=== PATIENT | male | born 1955 | race Caucasian/White ===

== ENCOUNTER 2017-10-01 13:15 | Observation (INO) | payer OTHER ==
[~2017-10-01] VITALS: Ht 177.8 cm; Wt 94.1 kg
--- OUTSIDE RECORDS SUMMARY | 2017-10-01 13:17 | XMS REPORT | Clinical Summary ---
Author Author [facility] Address Unknown Phone Unavailable Care Team Providers Care Public Health Name Role Phone Asked, Pcp PCP Unavailable Allergies No Known Allergies Current Medications No known medications Active Problems Not on file Social History Tobacco Use Types Packs/Day Years Used Date Former Smoker Smokeless Tobacco: Former Quit: User 09/21/2013 Alcohol Use Drinks/Week oz/Week Comments No Sex Assigned at Date Recorded Not on file Last Filed Vital Signs Not on file Plan of Treatment Health Maintenance Due Date Last Done Comments COLONOSCOPY 2003 ZOSTER VACCINE 2013 INFLUENZA VACCINE 01/09/2018 Results Not on fileafter 09/30/2016 Insurance Payer Benefit Subscriber ID Type Phone Address Plan / Group CIG[employer] CIGNA OPEN xxxxxxxxxxx [place] [address]
[2017-10-01 15:00] LABS: BASOPHILS % 0.3 % (0.0-1.0); EOSINOPHILS # (AUTO) 0.3 (0.0-0.4); EOSINOPHILS % 2.2 % (0.0-6.0); HEMATOCRIT 39.6 % (38.2-49.6); LYMPHOCYTES # (AUTO) 2.3 (1.0-3.2); LYMPHOCYTES % 20.2 % (18.0-39.1); MEAN CORPUSCULAR HEMOGLOBIN 31.1 pg (28-32); MEAN CORPUSCULAR HGB CONC 32.8 g/dL (31-35); MEAN CORPUSCULAR VOLUME 94.7 fL (81-99); MONOCYTES # (AUTO) 0.9 (0.2-0.8); MONOCYTES % 7.8 % (4.4-11.3); NEUTROPHILS # (AUTO) 7.9 (2.1-6.9); NEUTROPHILS % 69.1 % (38.7-80.0); PLATELET COUNT 358 x10e3/uL (140-360); RED BLOOD COUNT 4.18 x10e6/uL (4.3-5.7); RED CELL DISTRIBUTION WIDTH 13.1 % (11.7-14.4)
[2017-10-01 15:09] LABS: BILIRUBIN,URINE NEGATIVE (NEGATIVE); CLARITY,URINE SL CLOUDY (CLEAR); COLOR,URINE YELLOW (YELLOW); KETONES,URINE NEGATIVE (NEGATIVE); LEUKOCYTE ESTERASE ,URINE NEGATIVE (NEGATIVE); NITRITE,URINE NEGATIVE (NEGATIVE); PROTEIN,URINE DIPSTICK NEGATIVE (NEGATIVE); URINE UROBILINOGEN 0.2 mg/dL (0.2 - 1)
[2017-10-01] MEDS ORDERED: KETOROLAC TROMETHAMINE 30 MG/ML VIAL IV STA (15:09)
[2017-10-01 15:15] LABS: AMYLASE 50 U/L (25-125); LIPASE 16 U/L (8-78)
[2017-10-01 15:17] LABS: EPITHELIAL CELLS,URINE RARE /LPF; WBC,URINE (MAN) 0-5 /HPF (0-5)
[2017-10-01 15:19] LABS: ALANINE AMINOTRANSFERASE 28 IU/L (0-55); ALBUMIN 3.7 g/dL (3.5-5.0); ALBUMIN/GLOBULIN RATIO 0.8 (0.8-2.0); ALKALINE PHOSPHATASE 147 IU/L (40-150); ANION GAP 14.1 mmol/L (8-16); BLOOD UREA NITROGEN 10 mg/dL (7-26); BUN/CREATININE RATIO 10 (6-25); CALCIUM 10.6 mg/dL (8.4-10.2); CARBON DIOXIDE 27 mmol/L (22-29); CHLORIDE 100 mmol/L (98-107); CREATININE, SERUM 0.97 mg/dL (0.72-1.25); EST GLOMERULAR FILTRATION RATE > 60 ML/MIN (60-); GLUCOSE 88 mg/dL (74-118); POTASSIUM 4.1 mmol/L (3.5-5.1); SODIUM 137 mmol/L (136-145)
[2017-10-01] MEDS ORDERED: SPIRIVA18 MCG INH (16:29)
[2017-10-01] MEDS ORDERED: AMBIEN10 MG PO (16:29)
[2017-10-01] MEDS ORDERED: NORCO 10-325 T1 EACH (16:29)
[2017-10-01] MEDS ORDERED: ALBUTEROL0.63 MG/3 (16:29)
[2017-10-01] MEDS ORDERED: METOPROLOL TART25 MG PO (16:29)
--- NOTE | 2017-10-01 16:45 | Diagnostic Imaging Report ---
EXAM: CT Abdomen and Pelvis WITH contrast INDICATION: \S\ABDOMINAL PAIN \S\[id number] \S\1553 \S\Y COMPARISON: None. TECHNIQUE: Abdomen and pelvis were scanned utilizing a multidetector helical scanner from the lung base to the pubic symphysis after administration of IV contrast. Coronal and sagittal reformations were obtained. Routine protocol was performed. Scan was performed when during portal venous phase. IV CONTRAST: 100 mL of Isovue-370 ORAL CONTRAST: Water COMPLICATIONS: None RADIATION DOSE: Total DLP: 643.04 mGy*cm Estimated effective dose: (DLP x 0.015 x size factor) mSv CTDIvol has been reviewed. It is below the limits set by the Radiation Protocol Committee (RPC). FINDINGS: LINES and TUBES: None. LOWER THORAX: Unremarkable HEPATOBILIARY: No focal hepatic lesions. No biliary ductal dilation. GALLBLADDER: Not visualized. SPLEEN: No splenomegaly. PANCREAS: No focal masses or ductal dilatation. Pancreatic head calcification (series 2, image 31), probably related to prior pancreatitis. ADRENALS: No adrenal nodules KIDNEYS/URETERS: Kidneys enhance symmetrically. No hydronephrosis. No renal mass. 2.5 cm exophytic right inferior pole renal cyst. Additional subcentimeter hypodensities are too small to characterize. No stones. GI TRACT: No abnormal distention, wall thickening, or evidence of bowel obstruction. Appendix is normal. PELVIC ORGANS/BLADDER: Unremarkable. LYMPH NODES: No lymphadenopathy. VESSELS: There is moderate to severe atherosclerotic disease in the aorta and major arterial branches. Focal ectasia of infrarenal abdominal aorta measuring 2.2 cm (series 2, image 37). Marked narrowing at the origin of the celiac axis. PERITONEUM / RETROPERITONEUM: No free air or fluid. BONES: Multilevel advanced degenerative changes of lumbar spine. Grade 1 retrolisthesis of L5 in relation to S1. SOFT TISSUES: Unremarkable. Small fat-containing umbilical hernia. IMPRESSION: 1. No acute inflammatory process in the abdomen/pelvis. 2. Moderate to severe aortoiliac atherosclerotic disease with marked narrowing of the origin of the celiac axis. Signed by: Dr. Kana Maldonado MD on 10/01/2017 4:41 PM
[2017-10-01] MEDS ORDERED: IOPAMIDOL 370 MG/ML 200 ML INFUS..BTL INJ ONE (17:35)
[2017-10-01] MEDS ORDERED: SODIUM CHLORIDE 0.9% 50ML 50 ML ONE (17:35)
[2017-10-01] MEDS ORDERED: D5.45%NS/KCL 20MEQ 1,000 ML IV SCH (18:13)
[2017-10-01] MEDS ORDERED: PROMETHAZINE HCL (IM) 25 MG/ML VIAL IV PRN (18:15)
[2017-10-01] MEDS ORDERED: HYDROMORPHONE 1MG/1ML INJ IV ONE (18:30)
[2017-10-01] MEDS ORDERED: PROMETHAZINE 12.5MG/ NACL 0.9% 50 ML IV PRN (18:30)
[2017-10-01] MEDS ORDERED: ONDANSETRON HCL 4 MG ORAL DISINTEGRATING TAB PO ONE (18:30)
--- OUTSIDE RECORDS SUMMARY | 2017-10-01 18:34 | XMS REPORT ---
Author Author [facility] Address Unknown Phone Unavailable Care Team Providers Care Cyberathlete Name Role Phone YEHUDA KEITA Unavailable Unavailable Problems This patient has no known problems. Allergies, Adverse Reactions, Alerts This patient has no known allergies or adverse reactions. Medications This patient has no known medications. Results Test Description Test Time Test Comments Text Results Atomic Results Result Comments CT ABDOMEN/PELVIS W [place] [address] Patient Name: MARY LARES MR #: [id number] : 1955 Age/Sex: 62/M Req # : [id number] Adm Physician: Ordered by: YANCY OLGUIN CREDIT VERIFICATION CLERK Report #: [id number] Location: ER Room/Bed: Procedure: [id number] CT/CT ABDOMEN/PELVIS W Exam Date: 10/01/17 Exam Time: 1553 REPORT STATUS: Signed EXAM: CT Abdomen and Pelvis WITH contrast INDICATION: COMPARISON: None. TECHNIQUE: Abdomen and pelvis were scanned utilizing a multidetector helical scanner from the lung base to the pubic symphysis after administration of IV contrast. Coronal and sagittal reformations were obtained. Routine protocol was performed. Scan was performed when during portal venous phase. IV CONTRAST: 100 mL of Isovue-370 ORAL CONTRAST: Water COMPLICATIONS: None RADIATION DOSE: Total DLP: 643.04 mGy*cm Estimated effective dose: (DLP x 0.015 x size factor) mSv CTDIvol has been reviewed. It is below the limits set by the Radiation Protocol Committee (RPC). FINDINGS: LINES and TUBES: None. LOWER THORAX: Unremarkable HEPATOBILIARY: No focal hepatic lesions. No biliary ductal dilation. GALLBLADDER: Not visualized. SPLEEN: No splenomegaly. PANCREAS: No focal masses or ductal dilatation. Pancreatic head calcification (series 2, image 31), probably related to prior pancreatitis. ADRENALS: No adrenal nodules KIDNEYS/URETERS: Kidneys enhance symmetrically. No hydronephrosis. No renal mass. 2.5 cm exophytic right inferior pole renal cyst. Additional subcentimeter hypodensities are too small to characterize. No stones. GI TRACT: No abnormal distention, wall thickening, or evidence of bowel obstruction. Appendix is normal. PELVIC ORGANS/BLADDER: Unremarkable. LYMPH NODES: No lymphadenopathy. VESSELS: There is moderate to severe atherosclerotic disease in the aorta and major arterial branches. Focal ectasia of infrarenal abdominal aorta measuring 2.2 cm (series 2, image 37). Marked narrowing at the origin of the celiac axis. PERITONEUM / RETROPERITONEUM: No free air or fluid. BONES: Multilevel advanced degenerative changes of lumbar spine. Grade 1 retrolisthesis of L5 in relation to S1. SOFT TISSUES: Unremarkable. Small fat-containing umbilical hernia. IMPRESSION: 1. No acute inflammatory process in the abdomen/pelvis. 2. Moderate to severe aortoiliac atherosclerotic disease with marked narrowing of the origin of the celiac axis. Signed by: Dr. Kana Miranda MD on 10/01/2017 4: 41 PM Dictated By: KANA MIRANDA MD 40 Transcribed By: JAZMIN on 10/01/171640 COPY TO: YANCY OLGUIN NP
--- OUTSIDE RECORDS SUMMARY | 2017-10-01 18:34 | XMS REPORT | Clinical Summary ---
Author Author [facility] Organization [facility] Address Unknown Phone Unavailable Care Team Providers Care Project Financial Analyst Name Role Phone Asked, Pcp PCP Unavailable [...] CIGNA CIGNA OPEN xxxxxxxxxxx [place] ACCESS/[place] [address]
[2017-10-01 21:15] VITALS: BP 156/83
[2017-10-01] MEDS: METOPROLOL TARTRATE 25 MG TAB PO SCH (23:04)
[2017-10-02] VITALS (7 sets, daily range): BP systolic 98–143; BP diastolic 64–91
[2017-10-02] MEDS: HYDROMORPHONE 1MG/1ML INJ IV PRN ×6 (00:23→23:21)
[2017-10-02] MEDS: ZOLPIDEM TARTRATE 10 MG TAB PO PRN (00:47)
[2017-10-02] MEDS: ALBUTEROL SULF 0.083% NEB SOLN 3 ML NEB NEB SCH ×3 (01:00→20:40)
[2017-10-02] MEDS ORDERED: SODIUM CHLORIDE 0.9% 1000ML 1,000 ML IV SCH (06:30)
[2017-10-02 06:55] LABS: BASOPHILS % 0.3 % (0.0-1.0); EOSINOPHILS # (AUTO) 0.3 (0.0-0.4); EOSINOPHILS % 2.9 % (0.0-6.0); HEMATOCRIT 35.3 % (38.2-49.6); HEMOGLOBIN 11.5 g/dL (14.0-18.0); LYMPHOCYTES # (AUTO) 2.7 (1.0-3.2); LYMPHOCYTES % 23.2 % (18.0-39.1); MEAN CORPUSCULAR HEMOGLOBIN 30.4 pg (28-32); MEAN CORPUSCULAR HGB CONC 32.6 g/dL (31-35); MEAN CORPUSCULAR VOLUME 93.4 fL (81-99); MONOCYTES # (AUTO) 0.9 (0.2-0.8); MONOCYTES % 8.1 % (4.4-11.3); NEUTROPHILS # (AUTO) 7.6 (2.1-6.9); NEUTROPHILS % 65.2 % (38.7-80.0); PLATELET COUNT 296 x10e3/uL (140-360); RED BLOOD COUNT 3.78 x10e6/uL (4.3-5.7)
[2017-10-02 07:18] LABS: ANION GAP 12.8 mmol/L (8-16); BLOOD UREA NITROGEN 10 mg/dL (7-26); BUN/CREATININE RATIO 13 (6-25); CALCIUM 9.9 mg/dL (8.4-10.2); CARBON DIOXIDE 27 mmol/L (22-29); CHLORIDE 104 mmol/L (98-107); CREATININE, SERUM 0.78 mg/dL (0.72-1.25); EST GLOMERULAR FILTRATION RATE > 60 ML/MIN (60-); GLUCOSE 94 mg/dL (74-118); POTASSIUM 4.8 mmol/L (3.5-5.1); SODIUM 139 mmol/L (136-145)
[2017-10-02 07:46] LABS: CHOL/HDL RATIO 3.5 (3.9-4.7)
--- NOTE | 2017-10-02 07:51 | History and Physical ---
PRIMARY CARE PHYSICIAN: Dr. Derrick Espino CHIEF COMPLAINT: Severe mid-abdominal pain. HISTORY OF PRESENT ILLNESS: This is a 62-year-old man with a history of chronic abdominal pain that has been ongoing for many months. He has seen his primary care doctor. He had upper and lower endoscopy at [facility] and has been maintained on hydrocodone by his primary care doctor. He now presented to the hospital due to persistence of his symptoms and slight increase in pain. The patient says he has been at [facility] at which time they did an EGD. They had originally planned to perform a cholecystectomy, but he states at that time they were unable to locate his gallbladder. He states he has had biliary stones and has had biliary tract manipulation. PAST MEDICAL HISTORY 1. Hypertension. 2. Biliary stones, status post biliary tract manipulation. 3. Pancreatitis. 4. Cigarette use. 5. Hiatal hernia. PAST SURGICAL HISTORY: Biliary tract manipulation. ALLERGIES: PER ELECTRONIC MEDICAL RECORD. FAMILY HISTORY AND SOCIAL HISTORY: The patient is . He has 1 daughter. He quit alcohol and quit cigarettes in September 2013. MEDICATIONS: Per electronic medical record. REVIEW OF SYSTEMS: Denies any dizziness or chest pain. PHYSICAL EXAMINATION VITAL SIGNS: Reviewed. GENERAL APPEARANCE: A tired-appearing man resting in bed. HEENT: Anicteric. Pupils are responsive to light. No oral lesions. CARDIOVASCULAR: Normal S1 and S2. LUNGS: Moderate breath sounds. ABDOMEN: Soft, nondistended. He has mid-abdominal discomfort. No rebound or guarding. EXTREMITIES: No edema or calf tenderness. NEUROLOGIC: Alert, oriented times 3, moving all extremities. SKIN: Dry. PSYCHIATRIC: Normal affect. LABS: Reviewed. MEDICATIONS: Reviewed. ASSESSMENT: This is a 62-year-old man. 1. Early sepsis. 2. Mid-abdominal pain, which is chronic. 3. Hypercalcemia/dehydration. 4. Hypertension. 5. Obesity. Body mass index 31.6. PLAN 1. Continue rehydration. 2. Continue blood pressure control. 3. Add IV Flagyl. 4. Pain control with Dilaudid. 5. Obtain and monitor electrolytes. 6. GI consultation and follow up recommendations. 7. Use SCDs and Pepcid. Job#: [id number]
[2017-10-02] MEDS: FAMOTIDINE 20 MG/2 ML VIAL IV SCH ×2 (09:22→16:49)
[2017-10-02] MEDS: METOPROLOL TARTRATE 25 MG TAB PO SCH ×2 (09:22→16:49)
[2017-10-02] MEDS: METRONIDAZOLE 500MG/NS 100ML 100 ML IV SCH ×2 (13:11→21:58)
[2017-10-02] MEDS ORDERED: SYMBICORT 16010.2 GM (14:01)
[2017-10-02] MEDS ORDERED: PEG (High)/E-LYTE SOLN 4,000 ML BTL PO NR (20:00)
[2017-10-02] MEDS ORDERED: BISACODYL 5 MG TAB EC PO NR (20:00)
--- NOTE | 2017-10-02 21:51 | Consultation ---
DATE OF CONSULTATION: October 02, 2017 HISTORY: This is a 62-year-old, who has history of abdominal pain, apparently presented to the hospital because of pain again mainly is in the periumbilical area radiating towards the right side of the abdomen. His workup revealed that his CMP was normal. His white count a little bit high 11.4, and his CAT scan shows renal cyst with focal ectasia and in infra-abdominal aorta about 2.2 cm. There is marked narrowing at the origin of the celiac axis. He said that he had an upper and lower endoscopy that was done about 2016 at [facility], which supposedly "normal". OTHER MEDICAL PROBLEM: Significant for the abdominal pain that has been going on for several months already. Also, history of biliary stones supposedly with pancreatitis. History of hiatal hernia. ALLERGIES: NONE. SOCIAL HISTORY: Denies any alcohol use. FAMILY HISTORY: Noncontributory. REVIEW OF SYSTEMS: Denies any chest pain or shortness of breath. Denies any dysphagia or odynophagia. Denies any dysuria, hematuria or any kind of syncopal episode. PHYSICAL EXAMINATION GENERAL: Patient is awake, alert, appears to be stable, not in acute distress at this point. VITAL SIGNS: Afebrile currently. HEENT: Normocephalic, atraumatic. Sclerae anicteric. NECK: Supple. HEART: Sounds regular. ABDOMEN: Soft. There is no distention at this point. There is some tenderness mainly in the right lower quadrant area. There is no rebound or mass. EXTREMITIES: No clubbing. LAB VALUES: Today, WBC of 11.6, hemoglobin 11.5, sed rate was 97, and CAT scan as I mentioned before. IMPRESSIONS 1. Abdominal pain mainly is in the periumbilical area. Pain seems to be worse with meal. Computerized axial tomography scan shows narrowing of the celiac area. 2. Leukocytosis. RECOMMENDATIONS: Continue on the current care at this point. Will proceed with EGD and colonoscopy for tomorrow and follow labs and clinically. Job#: [id number] CQ cc:MRAEN MOHAMUD MD
[2017-10-03] VITALS: BP 122/73
[2017-10-03] MEDS: ZOLPIDEM TARTRATE 10 MG TAB PO PRN (00:37)
[2017-10-03] MEDS: ALBUTEROL SULF 0.083% NEB SOLN 3 ML NEB NEB SCH ×2 (02:25→06:45)
[2017-10-03] MEDS: HYDROMORPHONE 1MG/1ML INJ IV PRN ×3 (03:42→14:00)
[2017-10-03 04:00] VITALS: BP 141/59
[2017-10-03] MEDS: METRONIDAZOLE 500MG/NS 100ML 100 ML IV SCH (05:36)
[2017-10-03] MEDS ORDERED: PEPCID20 MG PO (06:56)
[2017-10-03] MEDS ORDERED: FLAGYL500 MG PO (07:03)
--- NOTE | 2017-10-03 07:11 | Progress Note ---
DATE: October 03, 2017 TIME: 6:53 a.m. OVERNIGHT: No events. REVIEW OF SYSTEMS: Denies any dizziness. PHYSICAL EXAMINATION VITAL SIGNS: Reviewed. GENERAL: A tired-appearing man resting in bed. HEENT: Anicteric. Pupils respond to light. No oral lesions. CARDIOVASCULAR: Normal S1 and S2. LUNGS: Moderate breath sounds. ABDOMEN: Soft and nondistended. Has midabdomen discomfort. No rebound or guarding. EXTREMITIES: No edema or calf tenderness. NEUROLOGICAL: Alert and oriented times 3. Moving all extremities. SKIN: Dry. PSYCHIATRIC: Normal affect. LABS: Reviewed. MEDICATIONS: Reviewed. ASSESSMENT: A 62-year-old man with: 1. Midabdominal pain which is chronic. 2. Hypercalcemia/dehydration. 3. Hypertension. 4. Obesity: Body mass index 31.6. PLAN 1. Endoscopy pending. 2. Continue rehydration. 3. Continue IV Flagyl. 4. Continue pain control. 5. Discharge planning. If endoscopy is negative, possible discharge home later today, although the patient did have an elevated sed rate of 97. Job#: [id number] MEENA
[2017-10-03 07:27] VITALS: BP 129/72
[2017-10-03] MEDS: METOPROLOL TARTRATE 25 MG TAB PO SCH (07:41)
[2017-10-03] MEDS: FAMOTIDINE 20 MG/2 ML VIAL IV SCH (07:41)
[2017-10-03 09:06] VITALS: BP 129/72
[2017-10-03] MEDS ORDERED: MIDAZOLAM HCL 2 MG/2 ML VIAL ONE (10:12)
[2017-10-03] MEDS ORDERED: FENTANYL CITRATE/PF 100MCG/2 ML INJ ONE (10:12)
[2017-10-03 11:12] VITALS: BP 120/67
[2017-10-03] MEDS ORDERED: PROPOFOL IV EMULSION 10 MG/ML 20 ML VIAL ONE (16:47)
[2017-10-03] MEDS ORDERED: LIDOCAINE HCL 2% LOCAL INJ 5 ML SDV VIAL INJ ONE (16:47)
--- NOTE | 2017-10-24 11:52 | Discharge Summary ---
PRINCIPAL DIAGNOSES 1. Mid-abdominal pain, which is chronic. 2. Hypercalcemia. 3. Dehydration. 4. Hypertension. 5. Obesity. Body mass index 31.6. 6. Status post colonoscopy. Findings are colonic polyps and diverticulosis. SECONDARY DIAGNOSIS: Hypertension. CHIEF COMPLAINT: Abdominal pain. HISTORY OF PRESENT ILLNESS: This is a 62-year-old man with abdominal pain. Please refer to the H and P for further details. HOSPITAL COURSE: The patient has chronic abdominal pain. He underwent colonoscopy, which showed colonic polyps and diverticulosis. He had hypercalcemia and dehydration. We rehydrated. He has obesity with BMI 31.6. The patient was treated with IV Flagyl and pain control and discharged home. DISCHARGE MEDICATIONS: Per electronic medical record. FOLLOWUP 1. With primary care doctor in 1 week. 2. With GI service in 2 weeks. CONDITION ON DISCHARGE: Stable and improving. DISCHARGE LOCATION: Home. Job#: [id number]
== END 2017-10-03 13:59 | disposition home or self-care (01) ==
LOC: ER 13:15 → ERHOLD 18:31 → IMCU 21:03
PROVIDERS: ADMIT Internal Medicine; ATTEND Internal Medicine
DX: A41.9 Sepsis, unspecified organism (principal); E83.52 Hypercalcemia; E86.0 Dehydration; I10 Essential (primary) hypertension; E66.9 Obesity, unspecified; Z68.31 Body mass index [BMI] 31.0-31.9, adult; K55.1 Chronic vascular disorders of intestine; K63.5 Polyp of colon; K57.30 Diverticulosis of large intestine without perforation or abscess without bleeding; K64.8 Other hemorrhoids; K29.70 Gastritis, unspecified, without bleeding; K44.9 Diaphragmatic hernia without obstruction or gangrene; K29.80 Duodenitis without bleeding
CPT/HCPCS: 36415 ×2; 43239; 45385; 74177; 80048; 80053; 80061; 81001; 82150; 83690; 85025 ×2; 85651; 88305; 88312; 93005; 94640 ×4; 99284; G0378 ×3; J1170 ×3; J1885; J2001; J2250; J7030 ×2; Q9967

== ENCOUNTER 2018-03-19 12:25 | Emergency (ER) | payer MEDICARE, OTHER ==
[~2018-03-19] VITALS: Ht 180.3 cm; Wt 90.7 kg
[~2018-03-19 12:25] MED LIST: ALBUTEROL0.63 MG/3; AMBIEN10 MG PO; FLAGYL500 MG PO; METOPROLOL TART25 MG PO; NORCO 10-325 T1 EACH PO; PEPCID20 MG PO; SPIRIVA18 MCG INH; SYMBICORT 16010.2 GM
[2018-03-19] MEDS ORDERED: ACETAMINOPHEN 1000 MG/100 ML IV STA (12:35)
[2018-03-19 13:26] LABS: BASOPHILS # (AUTO) 0.1 (0.0-0.1); BASOPHILS % 0.5 % (0.0-1.0); EOSINOPHILS # (AUTO) 0.2 (0.0-0.4); EOSINOPHILS % 1.6 % (0.0-6.0); HEMATOCRIT 38.9 % (38.2-49.6); HEMOGLOBIN 12.1 g/dL (14.0-18.0); LYMPHOCYTES # (AUTO) 1.6 (1.0-3.2); LYMPHOCYTES % 13.5 % (18.0-39.1); MEAN CORPUSCULAR HEMOGLOBIN 29.4 pg (28-32); MEAN CORPUSCULAR HGB CONC 31.1 g/dL (31-35); MEAN CORPUSCULAR VOLUME 94.6 fL (81-99); MONOCYTES # (AUTO) 0.6 (0.2-0.8); MONOCYTES % 5.3 % (4.4-11.3); NEUTROPHILS # (AUTO) 9.2 (2.1-6.9); NEUTROPHILS % 78.6 % (38.7-80.0); PLATELET COUNT 442 x10e3/uL (140-360); RED BLOOD COUNT 4.11 x10e6/uL (4.3-5.7); RED CELL DISTRIBUTION WIDTH 15.4 % (11.7-14.4)
[2018-03-19 14:26] LABS: ALANINE AMINOTRANSFERASE 36 IU/L (0-55); ALBUMIN 3.3 g/dL (3.5-5.0); ALBUMIN/GLOBULIN RATIO 0.7 (0.8-2.0); ALKALINE PHOSPHATASE 170 IU/L (40-150); ANION GAP 17.6 mmol/L (8-16); BLOOD UREA NITROGEN 14 mg/dL (7-26); BUN/CREATININE RATIO 12 (6-25); CALCIUM 9.9 mg/dL (8.4-10.2); CARBON DIOXIDE 21 mmol/L (22-29); CHLORIDE 107 mmol/L (98-107); CREATINE KINASE 1581 IU/L (30-200); CREATININE, SERUM 1.17 mg/dL (0.72-1.25); EST GLOMERULAR FILTRATION RATE > 60 ML/MIN (60-); GLUCOSE 89 mg/dL (74-118); LIPASE 15 U/L (8-78); POTASSIUM 4.6 mmol/L (3.5-5.1); SODIUM 141 mmol/L (136-145)
[2018-03-19 14:58] LABS: BILIRUBIN,URINE NEGATIVE (NEGATIVE); CLARITY,URINE CLEAR (CLEAR); COLOR,URINE STRAW (YELLOW); KETONES,URINE NEGATIVE (NEGATIVE); LEUKOCYTE ESTERASE ,URINE NEGATIVE (NEGATIVE); NITRITE,URINE NEGATIVE (NEGATIVE); PROTEIN,URINE DIPSTICK TRACE (NEGATIVE); URINE UROBILINOGEN 0.2 mg/dL (0.2 - 1)
[2018-03-19 15:09] LABS: WBC,URINE (MAN) 0-5 /HPF (0-5)
--- NOTE | 2018-03-19 16:16 | Diagnostic Imaging Report ---
EXAMINATION: CHEST SINGLE (NOT PORTABLE) INDICATION: \S\ABD PAIN \S\Y COMPARISON: CT abdomen and pelvis 03/19/2018 FINDINGS: AP view TUBES and LINES: None. LUNGS: Lungs are well inflated. 7.1 x 5.2 cm left midlung zone consolidation/masslike which appears to be abutting the fissure. The right lung is well expanded and clear. PLEURA: No pleural effusion or pneumothorax. HEART AND MEDIASTINUM: The cardiomediastinal silhouette is unremarkable.. BONES AND SOFT TISSUES: No acute osseous lesion. Soft tissues are unremarkable. UPPER ABDOMEN: No free air under the diaphragm. IMPRESSION: Indeterminate consolidation/masslike within the left mid chest, cannot exclude malignancy. Recommend further evaluation with CT chest with IV contrast. Signed by: Dr. Serina Hernández M.D. on 03/19/2018 4:13 PM
--- NOTE | 2018-03-19 16:40 | Diagnostic Imaging Report ---
EXAM: CT Abdomen and Pelvis WITH contrast INDICATION: Abdominal pain. COMPARISON: October 01, 2017 TECHNIQUE: Abdomen and pelvis were scanned utilizing a multidetector helical scanner from the lung base to the pubic symphysis after administration of IV contrast. Coronal and sagittal reformations were obtained. Routine protocol was performed. Scan was performed when during portal venous phase. IV CONTRAST: 100 mL of Isovue-370 ORAL CONTRAST: Water RADIATION DOSE: Total DLP: 610.09 mGy*cm Estimated effective dose: (DLP x 0.015 x size factor) mSv COMPLICATIONS: None All CT scans are performed using radiation dose reduction techniques. Technical factors are evaluated and adjusted to ensure appropriate moderation of exposure. Automated dose management technology is applied to adjust the radiation dose to minimize exposure while achieving a diagnostic-quality image. FINDINGS: LINES and TUBES: None. LOWER THORAX: Unremarkable HEPATOBILIARY: No focal hepatic lesions. No biliary ductal dilation. GALLBLADDER: Not visualized. SPLEEN: No splenomegaly. PANCREAS: No focal masses or ductal dilatation. Pancreatic head calcification unchanged, probably related to prior pancreatitis. ADRENALS: No adrenal nodules KIDNEYS/URETERS: Kidneys enhance symmetrically. No hydronephrosis. 2.5 cm exophytic right inferior pole renal cyst. Additional subcentimeter hypodensities are too small to characterize. No stones. GI TRACT: No abnormal distention, wall thickening, or evidence of bowel obstruction. Appendix is normal. PELVIC ORGANS/BLADDER: Unremarkable. LYMPH NODES: No lymphadenopathy. VESSELS: There is moderate to severe atherosclerotic disease in the aorta and major arterial branches. Focal ectasia of infrarenal abdominal aorta measuring 2.2 cm unchanged. Marked narrowing at the origin of the celiac axis. PERITONEUM / RETROPERITONEUM: No free air or fluid. BONES: Multilevel advanced degenerative changes of lumbar spine. Grade 1 retrolisthesis of L5 in relation to S1. SOFT TISSUES: Unremarkable. Small fat-containing umbilical hernia. IMPRESSION: Essentially no change when compared with the prior exam. 1. No acute inflammatory process in the abdomen/pelvis. 2. Moderate to severe aortoiliac atherosclerotic disease with marked narrowing of the origin of the celiac axis. Signed by: Dr. Maciel Amin M.D. on 03/19/2018 4:36 PM
[2018-03-19] MEDS ORDERED: HYDROMORPHONE 2MG/ML 2 MG/ML ML IV ONE (16:45)
[2018-03-19] MEDS ORDERED: SODIUM CHLORIDE 0.9% 1000ML 1,000 ML IV ONE (17:15)
--- NOTE | 2018-03-19 17:45 | Diagnostic Imaging Report ---
EXAMINATION: CT scan of the chest without contrast. TECHNIQUE: Helical CT images of the chest were performed from the lung apices to the level of the adrenal glands. No intravenous contrast was administered . Coronal and sagittal reformatted images were obtained.Dose modulation, iterative reconstruction, and/or weight based adjustment of the mA/kV was utilized to reduce the radiation dose to as low as reasonably achievable. COMPARISON: None. CLINICAL HISTORY:Evaluate for mass. DISCUSSION: ABSENCE OF INTRAVENOUS CONTRAST DECREASES SENSITIVITY FOR DETECTION OF FOCAL LESIONS AND VASCULAR PATHOLOGY. LINES/TUBES: None. LUNGS AND AIRWAYS: Pulmonary emphysema. Right upper lobe mass measuring 5.5 cm extending to the apex of the lung and posterior medial chest. Left upper lobe mass measuring 5.5 cm with some narrowing of the left upper lobe bronchus adjacent interstitial change could reflect lymphangitic spread. Right hilar and mediastinal lymphadenopathy including a right lower paratracheal node measuring 2.5 cm. Additional mediastinal lymph nodes including periaortic and left lower paratracheal. PLEURA: No pneumothorax or pleural effusions. HEART AND MEDIASTINUM: The thyroid gland is normal. Heart size is normal. Coronary artery calcifications. LYMPH NODES: There is no mediastinal, hilar or axillary lymphadenopathy. ABDOMEN: Renal calculi. Adrenal glands unremarkable. BONES AND SOFT TISSUES: No acute bony abnormalities. IMPRESSION: A 5.5 cm right upper lobe mass and a 5.5 cm left upper lobe mass with right hilar and mediastinal adenopathy. Likely bronchogenic carcinoma. Pulmonary emphysema. Coronary artery calcifications. Signed by: Dr. Tal Worrell M.D. on 03/19/2018 5:42 PM
[2018-03-19] MEDS ORDERED: SODIUM BICARBONATE 8.4% INJ 50 ML SYR IV STA (18:14)
[2018-03-19] MEDS ORDERED: SODIUM CHLORIDE 0.9% 50ML 50 ML ONE (20:25)
[2018-03-19] MEDS ORDERED: IOPAMIDOL 370 MG/ML 200 ML INFUS..BTL INJ ONE (20:25)
--- OUTSIDE RECORDS SUMMARY | 2018-03-26 12:18 | XMS REPORT | Clinical Summary ---
Author Author [facility] Address Unknown Phone Unavailable Care Team Providers Care Creative Writing Professor Name Role Phone Asked, No Pcp PCP Unavailable Allergies No Known Allergies [...] Health Maintenance Due Date Last Done Comments COLON CANCER SCREENING 2003 SHINGRIX VACCINE (#1) 2003 ZOSTER VACCINE 2013 INFLUENZA VACCINE 01/09/2018 PNEUMOCOCCAL 2018 POLYSACCHARIDE VACCINE AGE 65 AND OVER PNEUMOCOCCAL-13 2018 Results Not on fileafter 03/18/2017 Insurance Payer Benefit Subscriber ID Type Phone Address Plan / Group CIG[employer] CIGNA OPEN xxxxxxxxxxx H[place] ACCESS/[place] [address]
== END 2018-03-19 19:12 | disposition home or self-care (01) ==
LOC: ER 12:25
DX: R10.30 Lower abdominal pain, unspecified (principal); K59.00 Constipation, unspecified; I10 Essential (primary) hypertension; J44.9 Chronic obstructive pulmonary disease, unspecified; G47.00 Insomnia, unspecified; Z87.442 Personal history of urinary calculi; Z88.5 Allergy status to narcotic agent; D64.9 Anemia, unspecified; D47.3 Essential (hemorrhagic) thrombocythemia
CPT/HCPCS: 36415; 71045; 71250; 74177; 80053; 81001; 82550; 82553; 83605; 83690; 84484; 85025; 93005; 99284; J1170; J7030; Q9967

== ENCOUNTER 2018-04-04 14:01 | Inpatient (IN) | payer MEDICARE ==
[~2018-04-04] VITALS: Ht 182.9 cm; Wt 88.5 kg
--- OUTSIDE RECORDS SUMMARY | 2018-04-04 14:04 | XMS REPORT | Clinical Summary ---
Author Author [facility] Address Unknown Phone Unavailable Care Team Providers Care Audio Visual Tech Name Role Phone Asked, No Pcp PCP [...] OVER PNEUMOCOCCAL-13 2018 Results Not on fileafter 04/03/2017 Insurance Payer Benefit Subscriber ID Type Phone Address Plan / Group [employer] C[employer] OPEN xxxxxxxxxxx HMO ACCESS/[place] [address]
[2018-04-04] MEDS ORDERED: ASPIRIN 81 MG CHEW TAB PO ONE (14:15)
--- NOTE | 2018-04-04 14:40 | Diagnostic Imaging Report ---
EXAMINATION: Head CT HISTORY: Altered mental status, unresponsive COMPARISON: None. TECHNIQUE: Multidetector axial images were obtained without contrast from the foramen magnum to the vertex . The images were reconstructed using brain and bone algorithms. Thin section brain images were reformatted into coronal and sagittal planes. Image quality: Motion/streaking artifact limits the evaluation of the skull base and posterior cranial fossa. Dose modulation, iterative reconstruction, and/or weight based adjustment of the mA/kV was utilized to reduce the radiation dose to as low as reasonably achievable. FINDINGS: Parenchyma: 1. Few scattered white matter hypodensities, most likely nonspecific chronic microvascular ischemic changes, likely age-related. 2. No mass or hemorrhage. No CT evidence of acute territorial vascular insult. Extra-axial spaces:No abnormal density. No extra-axial fluid collections Brain volume: Normal for age. Ventricles: No hydrocephalus or displacement. Arteries: No density suggestive of thrombus. Dural sinuses: No abnormal density. Extra-axial spaces: No abnormal density. Foramen magnum: No mass, Chiari malformation, or basilar invagination. Sella: No obvious mass. Paranasal/mastoid sinuses: Imaged portions unremarkable. Skull/Scalp: No lytic or blastic lesions. No fractures. IMPRESSION: No acute intracranial abnormalities. Mild chronic microvascular ischemic changes. Signed by: Dr. Gerri Berg M.D. on 04/04/2018 2:37 PM
--- NOTE | 2018-04-04 15:05 | Diagnostic Imaging Report ---
EXAMINATION: CHEST 2 VIEWS INDICATION: Unresponsive. ^ORDER PLACED BY ^[id number] ^[id number] ^Y COMPARISON: CT chest 03/19/2018 FINDINGS: PA and lateral views TUBES and LINES: None. LUNGS: Lungs are well inflated. Unchanged large bilateral upper lobe masses. Left lower lobe atelectasis, unchanged. PLEURA: No pleural effusion or pneumothorax. HEART AND MEDIASTINUM: The cardiac silhouette is within normal limits. Mediastinal and and bilateral hilar lymphadenopathy, unchanged. BONES AND SOFT TISSUES: Degenerative changes of the thoracic spine. Soft tissues are unremarkable. UPPER ABDOMEN: No free air under the diaphragm. IMPRESSION: Unchanged bilateral upper lobe masses and mediastinal lymphadenopathy. Signed by: Dr. Serina Hernández M.D. on 04/04/2018 3:02 PM
[2018-04-04 15:34] LABS: BASOPHILS # (AUTO) 0.1 (0.0-0.1); BASOPHILS % 0.4 % (0.0-1.0); EOSINOPHILS # (AUTO) 0.2 (0.0-0.4); EOSINOPHILS % 1.7 % (0.0-6.0); HEMATOCRIT 37.9 % (38.2-49.6); LYMPHOCYTES # (AUTO) 1.9 (1.0-3.2); LYMPHOCYTES % 14.3 % (18.0-39.1); MEAN CORPUSCULAR HEMOGLOBIN 29.4 pg (28-32); MEAN CORPUSCULAR HGB CONC 31.7 g/dL (31-35); MEAN CORPUSCULAR VOLUME 92.9 fL (81-99); MONOCYTES # (AUTO) 0.8 (0.2-0.8); MONOCYTES % 6.2 % (4.4-11.3); NEUTROPHILS # (AUTO) 10.1 (2.1-6.9); NEUTROPHILS % 76.9 % (38.7-80.0); PLATELET COUNT 468 x10e3/uL (140-360); RED BLOOD COUNT 4.08 x10e6/uL (4.3-5.7); RED CELL DISTRIBUTION WIDTH 14.4 % (11.7-14.4)
[2018-04-04 15:44] LABS: INR 0.84; PROTHROMBIN TIME 12.3 seconds (11.9-14.5)
[2018-04-04 15:55] LABS: ALANINE AMINOTRANSFERASE 27 IU/L (0-55); ALBUMIN 3.5 g/dL (3.5-5.0); ALBUMIN/GLOBULIN RATIO 0.7 (0.8-2.0); ALKALINE PHOSPHATASE 209 IU/L (40-150); ANION GAP 22.5 mmol/L (8-16); BLOOD UREA NITROGEN 12 mg/dL (7-26); BUN/CREATININE RATIO 15 (6-25); CALCIUM 10.8 mg/dL (8.4-10.2); CARBON DIOXIDE 18 mmol/L (22-29); CHLORIDE 100 mmol/L (98-107); CREATINE KINASE 77 IU/L (30-200); CREATININE, SERUM 0.79 mg/dL (0.72-1.25); EST GLOMERULAR FILTRATION RATE > 60 ML/MIN (60-); GLUCOSE 87 mg/dL (74-118); LIPASE 17 U/L (8-78); MAGNESIUM 2.5 MG/DL (1.3-2.1); POTASSIUM 4.5 mmol/L (3.5-5.1); SODIUM 136 mmol/L (136-145)
[2018-04-04] MEDS ORDERED: SODIUM CHLORIDE 0.9% 1000ML 1,000 ML IV STA ×2 (16:13→18:05)
[2018-04-04 16:17] LABS: THYROID STIMULATING HORMONE 0.336 uIU/mL (0.350-4.940)
[2018-04-04] MEDS ORDERED: LIDOCAINE JELLY 2% 10ML URO-JET ONE (19:37)
[2018-04-04] MEDS ORDERED: LORAZEPAM INJ 2 MG/ML VIAL ONE (19:50)
[2018-04-04 19:52] LABS: BILIRUBIN,URINE 2+ (NEGATIVE); CLARITY,URINE SL CLOUDY (CLEAR); COLOR,URINE YELLOW (YELLOW); KETONES,URINE 2+ (NEGATIVE); LEUKOCYTE ESTERASE ,URINE NEGATIVE (NEGATIVE); NITRITE,URINE NEGATIVE (NEGATIVE); PROTEIN,URINE DIPSTICK TRACE (NEGATIVE); URINE UROBILINOGEN 0.2 mg/dL (0.2 - 1)
[2018-04-04 19:55] LABS: AMPHETAMINES SCREEN,URINE NEGATIVE (NEGATIVE); BENZODIAZEPINES SCREEN,URINE NEGATIVE (NEGATIVE); PHENCYCLIDINE SCREEN,URINE NEGATIVE (NEGATIVE)
[2018-04-04] MEDS ORDERED: LORAZEPAM INJ 2 MG/ML VIAL IV STA (19:56)
[2018-04-04] MEDS ORDERED: LIDOCAINE JELLY 2% 10ML URO-JET TOP STA (19:56)
[2018-04-04 20:02] LABS: BACTERIA,URINE MODERATE /HPF; HYALINE CASTS 0-1 (0-1); MUCUS,URINE FEW (RARE)
[2018-04-04 20:33] LABS: ABG PCO2 27 mmHg (41-51); ABG PH 7.37 (7.31-7.41); ABG PO2 92 mmHg (80-105)
[2018-04-04 20:34] LABS: ABG HCO3 16 mmol/L (23-28)
[2018-04-04] MEDS ORDERED: CEFTRIAXONE SOD 1 GM VIAL IV ONE (21:15)
--- OUTSIDE RECORDS SUMMARY | 2018-04-04 21:24 | XMS REPORT | Clinical Summary ---
Author Author [facility] Organization [facility] Address Unknown Phone Unavailable Care Team Providers Care Resource Teacher Name Role Phone Asked, No Pcp PCP [...] CIG[employer] CIGNA OPEN xxxxxxxxxxx H[place] ACCESS/[place] [address]
[2018-04-04] MEDS: SODIUM CHLORIDE 0.9% 1000ML 1,000 ML IV SCH (22:02)
[2018-04-05] MEDS ORDERED: KETOROLAC TROMETHAMINE 30 MG/ML VIAL IM PRN (00:15)
[2018-04-05] MEDS ORDERED: IOPAMIDOL 370 MG/ML 200 ML INFUS..BTL INJ ONE (00:26)
[2018-04-05] MEDS ORDERED: SODIUM CHLORIDE 0.9% 50ML 50 ML ONE (00:26)
[2018-04-05] MEDS ORDERED: DEXTROSE 10% 1,000 ML IV ONE (00:27)
--- NOTE | 2018-04-05 01:37 | Diagnostic Imaging Report ---
EXAM: CT ABDOMEN/PELVIS W DATE: 04/05/2018 12:12 AM INDICATION: Pain COMPARISON: 03/19/[address] TECHNIQUE: The abdomen and pelvis were scanned using a multidetector helical scanner. Coronal and sagittal reformations were obtained. CT low dose techniques were utilized, as applicable. IV Contrast: 100 ml Isovue 300/370 FINDINGS: LOWER THORAX: New cluster of right lower lobe nodules measuring up to 1.2 cm. LIVER/BILIARY: No masses. No ductal dilatation. GALLBLADDER: Absent SPLEEN: Unremarkable PANCREAS: Unremarkable ADRENALS: No nodules KIDNEYS: Incidental bilateral renal cysts and subcentimeter bilateral too small to characterize lesions. No hydronephrosis. GI TRACT: No wall thickening or evidence of obstruction. Normal appendix. VESSELS: Severe atherosclerotic changes with severe narrowing of the celiac and SMA origin. PERITONEUM/RETROPERITONEUM: No free air or fluid LYMPH NODES: No lymphadenopathy REPRODUCTIVE ORGANS/BLADDER: Unremarkable SOFT TISSUES: Unremarkable BONES: Multilevel degenerative changes. IMPRESSION: 1. No acute abnormality in the abdomen or pelvis. 2. New cluster of right lower lobe nodules which may be infectious or new metastases given suspected lung cancer on prior chest CT. Attention on scheduled follow-up chest CT. Signed by: Dr Honey Alfaro MD on 04/05/2018 1:34 AM
[2018-04-05] MEDS: SODIUM CHLORIDE 0.9% 1000ML 1,000 ML IV SCH ×3 (05:35→20:59)
[2018-04-05 05:37] LABS: ALANINE AMINOTRANSFERASE 21 IU/L (0-55); ALBUMIN 2.9 g/dL (3.5-5.0); ALBUMIN/GLOBULIN RATIO 0.8 (0.8-2.0); ALKALINE PHOSPHATASE 156 IU/L (40-150); ANION GAP 18.5 mmol/L (8-16); BLOOD UREA NITROGEN 10 mg/dL (7-26); BUN/CREATININE RATIO 14 (6-25); CALCIUM 9.2 mg/dL (8.4-10.2); CARBON DIOXIDE 18 mmol/L (22-29); CHLORIDE 105 mmol/L (98-107); CREATININE, SERUM 0.73 mg/dL (0.72-1.25); EST GLOMERULAR FILTRATION RATE > 60 ML/MIN (60-); GLUCOSE 81 mg/dL (74-118); POTASSIUM 3.5 mmol/L (3.5-5.1); SODIUM 138 mmol/L (136-145)
[2018-04-05 06:41] LABS: BASOPHILS % 0.4 % (0.0-1.0); EOSINOPHILS # (AUTO) 0.3 (0.0-0.4); EOSINOPHILS % 2.3 % (0.0-6.0); HEMATOCRIT 30.6 % (38.2-49.6); HEMOGLOBIN 9.6 g/dL (14.0-18.0); LYMPHOCYTES # (AUTO) 2.1 (1.0-3.2); LYMPHOCYTES % 19.7 % (18.0-39.1); MEAN CORPUSCULAR HGB CONC 31.4 g/dL (31-35); MEAN CORPUSCULAR VOLUME 92.4 fL (81-99); MONOCYTES % 9.5 % (4.4-11.3); NEUTROPHILS # (AUTO) 7.3 (2.1-6.9); NEUTROPHILS % 67.7 % (38.7-80.0); PLATELET COUNT 372 x10e3/uL (140-360); RED BLOOD COUNT 3.31 x10e6/uL (4.3-5.7); RED CELL DISTRIBUTION WIDTH 14.6 % (11.7-14.4)
--- NOTE | 2018-04-05 06:58 | History and Physical ---
REASON FOR ADMISSION: Mental status changes. HISTORY OF PRESENT ILLNESS: Patient is a gentleman who was dropped off by his . He is 63 years old. He presented with altered mental status, who apparently had a workup over at [place], but unsure about the findings. Patient was recently found to have bilateral lung masses in the apical area. He was admitted to the hospital for lung cancer, and unsure of workup at this time. The patient is unfortunately not able to provide much history. He is being admitted for mental status changes, as well as possible new-onset lung cancer. PAST MEDICAL HISTORY: Unobtainable. MEDICATIONS: No list is provided. ALLERGIES: ALLERGIES TO TYLENOL AND CODEINE. SOCIAL HISTORY: He is a former smoker. Nondrinker. No IV drug use. FAMILY HISTORY: Noncontributory. PHYSICAL EXAMINATION VITALS: 98.6, blood pressure 136/70, pulse 108, sats 98% on 2 L. GENERAL: He is in no apparent distress. Lying in bed, but he is only alert to himself. NECK: No lymphadenopathy. CARDIOVASCULAR: Regular rate and rhythm. LUNGS: Decreased breath sounds bilaterally. ABDOMEN: Good bowel sounds. Soft and nontender. EXTREMITIES: No clubbing or cyanosis. NEUROLOGIC: Moves all extremities times 4. ASSESSMENT AND PLAN 1. Mental status changes with concern for possible neoplastic syndrome: He did have slightly elevated calcium in addition to lung mass . 2. Secondary hyperparathyroidism: Check thyroid level. Consult neurology to help evaluate the mental status aspects. 3. Hypercalcemia: Will continue to monitor and check a parathyroid level. 4. Lung mass: Will consult pulmonary to help assess and see if the patient does have evidence of lung cancer. 5. : Continue to monitor. 6. Anemia: Continue to monitor. Please see hospital chart for full details. Job#: [id number] MEENA
[2018-04-05] MEDS ORDERED: LORAZEPAM INJ 2 MG/ML VIAL ONE (09:26)
[2018-04-05] MEDS: LORAZEPAM INJ 2 MG/ML VIAL IV PRN ×3 (09:32→21:34)
--- NOTE | 2018-04-05 14:05 | Consultation ---
DATE OF CONSULTATION: April 05, 2018 PULMONARY CONSULTATION REASON FOR CONSULTATION: Abnormal CT of the chest. HPI: Mr. Nazario is a 63-year-old male who presented to the emergency room because of altered mental status. Patient is a very poor historian. According to the , they went to see the pain doctor, which is Dr. Smith, and was sent here because he was very confused. He was recently admitted at [facility] per the 's report, and also had possibility of biopsy done, but they do not know anything about the procedure that he ever had a biopsy done. They do not know if it was conclusive or not. The last admission here was in October of [address] Garcia discharged the patient. At that time, he presented with hypercalcemia and dehydration. Patient had a CT done here on March 19, 2018. I reviewed the images and it is showing evidence of large masses bilaterally with lymphadenopathy and emphysema. He has a history of smoking. Smoked for almost 38-40 years of 1 pack per day. REVIEW OF SYSTEMS GENERAL: Denies any fever or chills. HEENT: Denies any head trauma. ENT: Denies any headache. CV: Denies any chest pain. RESPIRATORY: Shortness of breath. GI: Denies any nausea or vomiting. MUSCULOSKELETAL: Denies any arthralgias myalgias. NEURO: Denies any focal weakness. The rest of the review of systems are negative, except as in HPI. PAST MEDICAL HISTORY: Hypertension, hyperlipidemia, chronic back pain. Patient is on pain medications. Chronic abdominal pain, etiology is not very clear for that. FAMILY AND SOCIAL HISTORY: He is an ex-smoker. Smoked for almost 40 years of 1 pack per day. Denies any alcohol use. He is . He quit alcohol and cigarettes in September of 2013. Also, has a history of pancreatitis in the past. PHYSICAL EXAMINATION VITAL SIGNS: Temperature 98.3, pulse of 103, blood pressure 153/84, respiratory rate of 18, O2 sat 97%. HEENT: Head atraumatic and normocephalic. NECK: Supple. CHEST: Clear to auscultation bilaterally. No wheezing. Reduced air entry. HEART: S1 and S2 audible. ABDOMEN: Soft and nontender. EXTREMITIES: No clubbing, cyanosis or edema. NEUROLOGIC: He is awake, alert and following commands. Earlier was confused. LABS: White count of 10,000. It was 13,000 yesterday. Hemoglobin 9.6 and was 12 yesterday, and platelet count is 372,000. Chemistry: Sodium 138, potassium 3.5, chloride 105, BUN 12, creatinine 0.73, anion gap was 22 yesterday and is 18.5 today. Lactic acid was normal. ASSESSMENT AND PLAN: A 63-year-old male with bilateral lung mass on computerized tomography of chest done on March 19, 2018. They are unsure about the biopsy where it was done. Followup is also ambiguous whether they went to follow up. CURRENT PROBLEMS 1. Large lung masses. Will schedule CT-guided biopsy. 2. High likelihood of chronic obstructive pulmonary disease and emphysema on computerized tomography of chest. I will start the patient on nebulizer treatment. 3. Altered mental status. Computerized tomography of the head is normal. 4. Chronic history of alcoholism as well per the chart. Unsure if that has affected the mentation chronically. Job#: [id number] MEENA
[2018-04-05] MEDS: HYDROCODONE/APAP 10MG-325MG TAB PO PRN ×2 (14:30→19:32)
[2018-04-05] MEDS ORDERED: LIDOCAINE HCL 1% LOCAL INJ 20 ML VIAL ONE (15:15)
--- NOTE | 2018-04-05 16:30 | Diagnostic Imaging Report ---
EXAMINATION: Fluoroscopically-guided lumbar puncture HISTORY: Confusion. TECHNIQUE: medication: None. anesthesia: 1% lidocaine, 5 cc needle: 22 gauge x 5 inch spinal fluoro time: 1.6 minutes DAP: 95.4 microGy-m2 PROCEDURE: After giving informed consent, the patient lay prone on the examination table. The back was prepped and draped in the usual sterile manner, and then 1% lidocaine was infiltrated in the skin. The spinal needle was advanced through the L4-L5 interspace via a left sided approach until CSF was obtained. Given patient movement and inability to tolerate, pressure measurements were not obtained. Approximately 10 mL of fluid was removed and sent to the laboratory for tests ordered by the referring physician. The patient was transferred to the floor in stable condition. FINDINGS: CSF: Slightly pinkish tinged fluid initially, subsequently clear. IMPRESSION: Fluoroscopically-guided lumbar puncture via a left L4-L5 approach. Signed by: Dr. Austin Marquis MD on 04/05/2018 4:26 PM
[2018-04-05 17:32] VITALS: BP 160/75
[2018-04-05] MEDS: BUDESONIDE 0.5MG/2 ML NEB INH SCH (19:00)
[2018-04-05 20:00] VITALS: BP 155/70
[2018-04-05] MEDS ORDERED: BUDESONIDE/FORMOTEROL 160/4.5MCG INHALER INH PRN (20:00)
[2018-04-05] MEDS ORDERED: ALBUTEROL SULF 0.083% NEB SOLN 3 ML NEB INH PRN (20:00)
[2018-04-05] MEDS ORDERED: HYDROCODONE/APAP 10MG-325MG TAB PO PRN (20:00)
[2018-04-05] MEDS ORDERED: ZOLPIDEM TARTRATE 10 MG TAB PO PRN (21:00)
[2018-04-05 21:21] VITALS: BP 155/70
[2018-04-05] MEDS: METHYLPREDNISOLONE SOD SUCC 40 MG/ML VIAL IV SCH (21:23)
[2018-04-05] MEDS: METOPROLOL TARTRATE 25 MG TAB PO SCH (21:23)
[2018-04-06] VITALS (7 sets, daily range): BP systolic 141–174; BP diastolic 70–81
[2018-04-06] MEDS ORDERED: LORAZEPAM INJ 2 MG/ML VIAL IV ONE (00:15)
[2018-04-06] MEDS: HYDROCODONE/APAP 10MG-325MG TAB PO PRN ×4 (01:09→20:43)
--- NOTE | 2018-04-06 02:16 | Consultation ---
DATE OF CONSULTATION: April 05, 2018 NEUROLOGY CONSULT NOTE HISTORY OF PRESENT ILLNESS: Mr. Nazario is a 63-year-old, wbevw-dlmn-zhytquca man with past medical history significant for hypertension, chronic obstructive pulmonary disease, headaches, and masses in the bilateral lung apices, admitted to [facility] on April 04, 2018 with confusion. According to Mr. Nazario, he presented to the hospital with abdominal pain and nausea without vomiting. However, his , who is at the bedside, reports the patient was confused. When asked for further details, the patient's reports Mr. Nazario did not know where he was on the day of admission. When speaking, he lost his train of thought multiple times. He was unable to answer simple questions. He had no recollection of events or conversations, which had occurred over the proceeding few days. Concerned, Mr. Nazario's brought him to the emergency center at [facility] for further evaluation. Upon arrival in the emergency center, the patient was afebrile with a blood pressure of 123/85 mmHg and a pulse of 125 beats per minute. His neurological examination was documented as follows: Not alert. Disoriented. Moderately altered mental status: Confused, lethargic, and disoriented to person. Patient is slow to response. Inaccurate responses to questions and inconsistent responses to commands. Eyes open-spontaneous. Best verbal response-confused. Best motor response-localizing. Mood/affect normal. Speech normal. Cranial nerves normal (as tested). No cerebellar findings. No motor deficit. No sensory deficit. Reflexes normal. While in the emergency center, a CT of the brain without contrast was ordered for further evaluation of the patient's encephalopathy. There was no evidence of acute abnormalities on the CT of the brain without contrast. According to the patient's , Mr. Nazario experienced similar symptoms approximately 1 month ago. He was hospitalized for a weak. During this hospitalization, Mr. Nazario underwent an MRI of the brain, which was reportedly normal. During this hospitalization, Mr. Nazario was treated with intravenous antibiotics and ?a banana bag?. According to his , Mr. Nazario's confusion gradually resolved over a period of 3 days. The etiology of the patient's confusion remains unknown. According to the patient's , an EEG was not performed during this hospitalization. Mr. Nazario does not report a visual field cut or other disturbance, dysarthria, facial weakness, hemiparesis, hemihypoesthesia, dizziness, poor balance, or gait impairment. In addition to the confusion described above, the patient's reports possible expressive aphasia. Both the patient and his endorse headaches which are described as follows: The pain is located across the forehead and does not radiate. Mr. Nazario describes the pain as throbbing, but cannot report the severity of the pain. The patient does not report photophobia, phonophobia, nausea, vomiting, dizziness, or visual disturbance associated with the headaches. Mr. Nazario reports the headaches occur occasionally. His reports the patient did endorse headaches approximately 1 month ago, around the time of his hospitalization. The believes Mr. Nazario experienced a headache approximately 2 days ago. However, at present, the patient does not report a headache. Mr. Nazario reports his headaches generally resolve with a single dose of Excedrin Migraine. It should be noted, the patient is known to have masses at the apices of both lungs. He underwent an evaluation, including a biopsy, during his hospitalization 1 month ago. Unfortunately, the biopsy results were inconclusive. At present, the patient is uncertain as to whether or not the masses are malignant, though they are presumed to be. REVIEW OF SYSTEMS: Abdominal pain, nausea, confusion, possible expressive aphasia, headaches. Otherwise, the 12-point review of systems is negative. PAST MEDICAL HISTORY: Hypertension, chronic obstructive pulmonary disease, other headaches, masses in the apices of both lungs. PAST SURGICAL HISTORY: Laminectomy at L4, L5, and S1, cholecystectomy. PAST HOSPITALIZATIONS: Surgeries/procedures as listed, hospitalization 1 month ago as detailed in history of present illness. FAMILY MEDICAL HISTORY: The patient's paternal and maternal grandparents are . Their medical histories are unknown. The patient's father and mother are , both from coronary artery disease with myocardial infarction. Mr. Nazario had a brother. He is from coronary artery disease with myocardial infarction. His sister is alive and healthy. Mr. Nazario has 1 child, a daughter, who is alive and healthy. SOCIAL HISTORY: The patient is . He is retired. Mr. Nazario smoked cigarettes for approximately 40 years, but quit in September 2013 when he was diagnosed with COPD. The patient does not report current or prior alcohol or recreational drug use. HOME MEDICATIONS: Albuterol nebulizer, Symbicort 160/4.5 mcg inhaler as needed for shortness of breath, hydrocodone/acetaminophen 10/325 mg 1 tablet by mouth 3 times daily as needed for pain, metoprolol tartrate 25 mg by mouth twice daily, zolpidem tartrate 10 mg by mouth at bedtime as needed for insomnia. ALLERGIES: ACETAMINOPHEN, CODEINE, STRAWBERRIES. NO KNOWN ALLERGIES TO LATEX. NO KNOWN ALLERGIES TO IODINE OR OTHER CONTRAST MATERIALS. PHYSICAL EXAMINATION VITAL SIGNS: Height 72 inches, weight 196 pounds, BMI 26.6 kg per meter squared, blood pressure 153/84 mmHg, pulse 111 beats per minute, respiratory rate 16 breaths per minute, oxygen saturation 100% on room air. GENERAL: The patient is awake and alert, does not appear distressed. HEENT: Normocephalic and atraumatic. Pupils are equal, round, and reactive to light. Moist mucous membranes. NECK: Supple. No appreciable thyromegaly. No appreciable carotid bruits. CARDIOVASCULAR: S1, S2, tachycardic, regular rhythm. No murmurs, rubs, or gallops. RESPIRATORY: Clear to auscultation bilaterally. No wheezes, rhonchi, or rales. EXTREMITIES: Skin is warm and dry. No clubbing, cyanosis, or edema. The posterior tibial and dorsalis pedis pulses are 2+ and symmetric. SKIN: No rashes or lesions. NEUROLOGIC MEMORY/ATTENTION: The patient is awake and alert, oriented to person, place (hospital, city, not county, state), not time, time, and minimally situation. CRANIAL NERVES: Cranial nerve I-not tested. Cranial nerve II, III, IV, and -pupils are equal and round, react briskly to light (from 4 mm to 2 mm). Extraocular movements intact. No nystagmus. Cranial nerve V-sensation to light touch and pinprick is intact in the bilateral V1 through V3 distributions. Strength of the temporalis and masseter muscles is within normal limits. Cranial nerve VII-the face is symmetric as are all facial movements. Strength is within normal limits. Cranial nerve VIII-hearing is intact to finger rub bilaterally. Cranial nerve IX, X-the soft palate elevates equally and symmetrically. Cranial nerve XII-normal strength of the bilateral sternocleidomastoid and trapezius muscles. Cranial nerve XII-the tongue protrudes midline and moves symmetrically from side to side. STRENGTH: Bulk is normal. Strength is 5/5 in the bilateral deltoids, biceps, triceps, wrist flexors and extensors, finger flexors and extensors, intrinsic hand muscles, hip flexors, knee flexors and extensors, ankle dorsiflexion and plantar flexion, and intrinsic foot muscles. Tone is normal. DTRs: Deep tendon reflexes are 1+ and symmetric at the triceps, biceps, brachioradialis, patellas, and Achilles. Plantar responses are flexor bilaterally. SENSATION: Sensation is intact to light touch and pinprick in both arms and both legs. CEREBELLAR: Gdjwek-rncy-uusqoh and heel-craig movements are intact without dysmetria or other impairment. GAIT: Deferred. SPEECH: Spontaneous speech is normal without appreciable dysarthria or aphasia. Repetition is intact. INVOLUNTARY MOVEMENTS: None. PRONATOR DRIFT: None. LABORATORY DATA: The most recent comprehensive metabolic panel is significant for a carbon dioxide of 18, anion gap of 18.5, alkaline phosphatase of 156, albumin of 2.9, and globulin of 3.8. Ammonia 57. Cardiac enzymes are negative x1. B-natriuretic peptide 39.2. TSH 0.336. CBC with differential and platelets reveals a white blood cell count of 10.79 with a normal differential. The hemoglobin and hematocrit are 9.6 and 30.6, respectively. The platelet count is 372,000. An arterial blood gas revealed pH of 7.37, pCO2 of 27, pO2 of 92, bicarbonate 16, oxygen saturation 97.0, base excess of -10.0, and FIO2 of 21. Coagulation profile is within normal limits with the exception of PTT at 19.0. A urinalysis revealed slightly cloudy urine with trace protein, 2+ ketones, 2+ bilirubin, moderate urine bacteria, and few urine mucus. A urine drug screen was positive for opiates. A blood alcohol level was less than 10.0. Blood cultures drawn on April 04, 2018 showed no growth after 24 hours. A preliminary urine culture collected on April 04, 2018 reveals no growth, holding. DIAGNOSTIC STUDIES 1. Electrocardiogram on April 04, 2018; sinus tachycardia 121 beats per minute with premature supraventricular complexes. 2. Chest x-ray on April 04, 2018: Unchanged bilateral upper lobe masses and mediastinal lymphadenopathy. 3. CT of the brain without contrast on April 04, 2018: On my review, there is no evidence of recent large territorial ischemia, hemorrhage, mass, or mass effect. Cerebral volumes are appropriate for age. There are findings compatible with hlzn-nb-xgytbcmv chronic small vessel ischemic disease. 4. CT of the abdomen/pelvis on April 05, 2018: (1) No acute abnormality in the abdomen and pelvis to. (2) New cluster of right lower lobe nodules which may be infectious or new metastases given suspected lung cancer on prior chest CT. 5. Lumbar puncture fluoroscopy on April 05, 2018: CSF was initially described as slightly pinkish, tinged fluid, would subsequently cleared. Impression: Fluoroscopically guided lumbar puncture via a left L4-L5 approach. ASSESSMENT AND PLAN: Mr. Nazario is a 63-year-old cfgbe-tfly-sbnpytbb man with past medical history as detailed, admitted to [facility] on April 04, 2018 with encephalopathy of undetermined etiology. At present, other than disorientation to time and situation, the patient's neurological examination is nonfocal. The patient's laboratory data and other diagnostic studies have been reviewed and are documented above. Possible etiologies for the patient's symptoms include: Infectious, metastatic disease to the brain causing cerebral edema, seizures, metabolic. RECOMMENDATIONS ARE FOLLOWS: 1. Additional laboratory data will be ordered to complete a metabolic evaluation. Additional tests will include: A vitamin B1 level, vitamin B12 level, and rapid plasma reagin. 2. It is recommended the patient undergo an MRI of the brain with and without contrast to evaluate for metastatic lesions to the brain. Unfortunately, Mr. Nazario is severely claustrophobic, and requires minimally conscious sedation to complete an MRI. Ideally, this study will be performed on Sunday, April 08, 2018. 3. An EEG in the awake and drowsy states will be ordered stat. 4. Follow up the results of the cerebral spinal fluid studies as well as other pending studies. Follow up the results of the patient's urine, blood, and CSF cultures. 5. Limit sedative/hypnotic and pain medications as these will alter the patient's sensorium. 6. Utilize environmental cues to limit the occurrence of delirium. 7. Defer treatment of the remaining medical comorbidities to the primary and other services following the patient. Thank you for this consultation. I will continue to follow the patient while he remains in the hospital. Time spent: 70 minutes. Job#: [id number] JHONNY ZAPATA
[2018-04-06] MEDS: SODIUM CHLORIDE 0.9% 1000ML 1,000 ML IV SCH ×3 (04:19→23:26)
[2018-04-06 06:16] LABS: BASOPHILS % 0.3 % (0.0-1.0); LYMPHOCYTES # (AUTO) 1.1 (1.0-3.2); LYMPHOCYTES % 14.3 % (18.0-39.1); MEAN CORPUSCULAR HEMOGLOBIN 29.3 pg (28-32); MEAN CORPUSCULAR HGB CONC 32.3 g/dL (31-35); MEAN CORPUSCULAR VOLUME 90.9 fL (81-99); MONOCYTES # (AUTO) 0.1 (0.2-0.8); MONOCYTES % 1.5 % (4.4-11.3); NEUTROPHILS # (AUTO) 6.2 (2.1-6.9); NEUTROPHILS % 83.6 % (38.7-80.0); PLATELET COUNT 400 x10e3/uL (140-360); RED BLOOD COUNT 3.41 x10e6/uL (4.3-5.7); RED CELL DISTRIBUTION WIDTH 14.6 % (11.7-14.4)
[2018-04-06 06:38] LABS: ANION GAP 16.8 mmol/L (8-16); BLOOD UREA NITROGEN 6 mg/dL (7-26); BUN/CREATININE RATIO 9 (6-25); CALCIUM 9.6 mg/dL (8.4-10.2); CARBON DIOXIDE 20 mmol/L (22-29); CHLORIDE 106 mmol/L (98-107); CREATININE, SERUM 0.67 mg/dL (0.72-1.25); EST GLOMERULAR FILTRATION RATE > 60 ML/MIN (60-); GLUCOSE 113 mg/dL (74-118); POTASSIUM 3.8 mmol/L (3.5-5.1); SODIUM 139 mmol/L (136-145)
[2018-04-06] MEDS: METOPROLOL TARTRATE 25 MG TAB PO SCH ×2 (09:00→20:44)
[2018-04-06] MEDS: METHYLPREDNISOLONE SOD SUCC 40 MG/ML VIAL IV SCH ×2 (09:00→20:43)
[2018-04-06] MEDS: ALBUTEROL/IPRATROPIUM 3 ML NEB NEB SCH ×2 (12:31→19:48)
[2018-04-06] MEDS: BUDESONIDE 0.5MG/2 ML NEB INH SCH (19:00)
[2018-04-06] MEDS: LORAZEPAM INJ 2 MG/ML VIAL IV PRN (23:20)
[2018-04-07] VITALS (7 sets, daily range): BP systolic 150–186; BP diastolic 81–94
[2018-04-07] MEDS: ALBUTEROL/IPRATROPIUM 3 ML NEB NEB SCH ×4 (01:00→19:00)
[2018-04-07] MEDS: SODIUM CHLORIDE 0.9% 1000ML 1,000 ML IV SCH (04:59)
[2018-04-07] MEDS: HYDROCODONE/APAP 10MG-325MG TAB PO PRN ×3 (06:02→20:30)
[2018-04-07] MEDS: BUDESONIDE 0.5MG/2 ML NEB INH SCH ×2 (06:55→19:00)
[2018-04-07] MEDS: METOPROLOL TARTRATE 25 MG TAB PO SCH ×2 (08:30→20:31)
[2018-04-07] MEDS: METHYLPREDNISOLONE SOD SUCC 40 MG/ML VIAL IV SCH ×2 (08:30→20:30)
[2018-04-07] MEDS: LORAZEPAM INJ 2 MG/ML VIAL IV PRN ×2 (09:26→21:36)
[2018-04-07 09:38] LABS: BASOPHILS % 0.1 % (0.0-1.0); HEMATOCRIT 29.8 % (38.2-49.6); HEMOGLOBIN 9.5 g/dL (14.0-18.0); LYMPHOCYTES # (AUTO) 1.1 (1.0-3.2); LYMPHOCYTES % 11.4 % (18.0-39.1); MEAN CORPUSCULAR HEMOGLOBIN 28.9 pg (28-32); MEAN CORPUSCULAR HGB CONC 31.9 g/dL (31-35); MEAN CORPUSCULAR VOLUME 90.6 fL (81-99); MONOCYTES # (AUTO) 1.1 (0.2-0.8); MONOCYTES % 10.9 % (4.4-11.3); NEUTROPHILS # (AUTO) 7.6 (2.1-6.9); NEUTROPHILS % 77.2 % (38.7-80.0); PLATELET COUNT 384 x10e3/uL (140-360); RED BLOOD COUNT 3.29 x10e6/uL (4.3-5.7); RED CELL DISTRIBUTION WIDTH 14.6 % (11.7-14.4)
[2018-04-07 09:54] LABS: ANION GAP 13.5 mmol/L (8-16); BLOOD UREA NITROGEN 7 mg/dL (7-26); BUN/CREATININE RATIO 10 (6-25); CALCIUM 9.7 mg/dL (8.4-10.2); CARBON DIOXIDE 22 mmol/L (22-29); CHLORIDE 109 mmol/L (98-107); CREATININE, SERUM 0.68 mg/dL (0.72-1.25); EST GLOMERULAR FILTRATION RATE > 60 ML/MIN (60-); GLUCOSE 108 mg/dL (74-118); POTASSIUM 3.5 mmol/L (3.5-5.1); SODIUM 141 mmol/L (136-145)
[2018-04-08] VITALS (11 sets, daily range): BP systolic 86–161; BP diastolic 42–96
[2018-04-08] MEDS: ALBUTEROL/IPRATROPIUM 3 ML NEB NEB SCH ×5 (01:00→19:00)
[2018-04-08] MEDS: HYDROCODONE/APAP 10MG-325MG TAB PO PRN ×4 (02:36→22:01)
[2018-04-08] MEDS: BUDESONIDE 0.5MG/2 ML NEB INH SCH ×2 (06:54→19:00)
[2018-04-08] MEDS: METHYLPREDNISOLONE SOD SUCC 40 MG/ML VIAL IV SCH (08:52)
[2018-04-08] MEDS ORDERED: LIDOCAINE HCL 1% LOCAL INJ 20 ML VIAL ONE (09:11)
[2018-04-08] MEDS: LORAZEPAM INJ 2 MG/ML VIAL IV PRN ×2 (09:38→18:49)
[2018-04-08] MEDS: METOPROLOL TARTRATE 25 MG TAB PO SCH ×2 (09:39→20:26)
[2018-04-08] MEDS ORDERED: SODIUM CHLORIDE 0.9% 500ML 500 ML ONE (09:41)
[2018-04-08] MEDS ORDERED: FENTANYL CITRATE/PF 100MCG/2 ML INJ ONE ×2 (09:42→10:28)
[2018-04-08] MEDS ORDERED: MIDAZOLAM HCL 2 MG/2 ML VIAL ONE (09:44)
--- NOTE | 2018-04-08 12:50 | Diagnostic Imaging Report ---
CT Guided Left Upper Lobe Pulmonary Mass Biopsy Consent: The nature of the procedure, including its risks, benefits and alternatives was explained to the patient who understood and gave consent. Operators: Austin Marquis MD ANESTHESIA: Intravenous conscious sedation was administered by radiology nursing. Continuous hemodynamic and respiratory monitoring was performed, including the use of pulse oximetry. Medications: 10 cc of 1% subcutaneous lidocaine Fentanyl and Versed per nursing administration records TECHNIQUE: The patient was placed in the supine position. Scans were obtained through the upper lung which demonstrated bilateral upper lobe pulmonary masses. The left upper lobe pulmonary mass was selected and a path to the lesion was identified. The skin of the left anterior chest was marked, prepped, draped and anesthetized with 1% lidocaine. With CT guidance, a 19-gauge needle was inserted percutaneously into the left upper lobe mass. Aspirates were obtained with four 22-gauge needles. Several samples were provided to the Pathologist, who noted that the FNA sample was satisfactory. With CT guidance, several core biopsies were obtained with a 20-gauge core biopsy device and provided to the Pathologist. The introducer needle was removed. CONDITION/COMPLICATIONS: Stable condition without immediate complication. The patient will recover as an inpatient after one hour of monitoring in radiology. IMPRESSION: Needle aspiration and core biopsy of left upper lobe pulmonary mass as described. Signed by: Dr. Austin Marquis MD on 04/08/2018 12:46 PM
--- NOTE | 2018-04-08 13:35 | Diagnostic Imaging Report ---
EXAMINATION: CHEST XRAY POST PROCEDURE INDICATION: Status post lung biopsy. COMPARISON: CT chest 03/19/[address] lung biopsy 04/08/18. FINDINGS: PA and lateral views TUBES and LINES: None. LUNGS: Lungs are well inflated. Unchanged large bilateral upper lobe masses. PLEURA: No pleural effusion or pneumothorax. HEART AND MEDIASTINUM: The cardiac silhouette is within normal limits. Mediastinal and and bilateral hilar lymphadenopathy, unchanged. BONES AND SOFT TISSUES: Degenerative changes of the thoracic spine. Soft tissues are unremarkable. UPPER ABDOMEN: No free air under the diaphragm. IMPRESSION: No evidence of pneumothorax status post lung biopsy. Unchanged bilateral upper lobe masses and mediastinal lymphadenopathy. Signed by: Dr. Austin Marquis MD on 04/08/2018 1:31 PM
[2018-04-09] VITALS: BP 163/79
[2018-04-09] MEDS: LORAZEPAM INJ 2 MG/ML VIAL IV PRN ×2 (00:35→06:16)
[2018-04-09] MEDS: ALBUTEROL/IPRATROPIUM 3 ML NEB NEB SCH ×2 (01:00→07:05)
[2018-04-09] MEDS: HYDROCODONE/APAP 10MG-325MG TAB PO PRN ×2 (03:37→09:46)
[2018-04-09 04:00] VITALS: BP 154/80
[2018-04-09] MEDS: BUDESONIDE 0.5MG/2 ML NEB INH SCH (07:05)
[2018-04-09 07:47] VITALS: BP 163/81
[2018-04-09] MEDS: METOPROLOL TARTRATE 25 MG TAB PO SCH (08:15)
[2018-04-09] MEDS ORDERED: PREDNISONE 20 MG TAB PO SCH (09:00)
[2018-04-09 10:27] VITALS: BP 163/81
[2018-04-09 11:57] VITALS: BP 121/67
--- NOTE | 2018-05-25 19:04 | Discharge Summary ---
DISCHARGE DIAGNOSES 1. Encephalopathy. 2. Lung masses. HISTORY OF PRESENT ILLNESS AND HOSPITAL COURSE: See hospital chart for full details. The patient is a gentleman who presented with a lot of confusion and had a workup as an outside hospital due to these bilateral lung masses. He was brought in and had lumbar tap done that was negative. His encephalopathy resolved within a couple days. He was seen by neuro and pulmonary. Patient was scheduled to have his biopsies of the lung, which was done since he was back to his baseline. He wanted to follow up and do everything else as an outpatient per his wishes. He was discharged home with followup in 1 to 2 weeks with pulmonary. Please see hospital chart for full details. OBED PEREZ MD Job#: [id number] SHYANN
== END 2018-04-09 13:21 | disposition home or self-care (01) | DRG 71 ==
LOC: ER 14:01 → ERHOLD 20:59 → MED/SURG 04-05 16:43 → MED/SURG3 04-06 07:30
PROVIDERS: ADMIT Internal Medicine; ATTEND Internal Medicine
PROC: 009U3ZX Drainage of Spinal Canal, Percutaneous Approach, Diagnostic (ICD-10-PCS; principal; 2018-04-05)
PROC: 0BBG3ZX Excision of Left Upper Lung Lobe, Percutaneous Approach, Diagnostic (ICD-10-PCS; 2018-04-08)
PROC: 0B9G3ZX Drainage of Left Upper Lung Lobe, Percutaneous Approach, Diagnostic (ICD-10-PCS; 2018-04-08)
PROC: 0DJD8ZZ Inspection of Lower Intestinal Tract, Via Natural or Artificial Opening Endoscopic (ICD-10-PCS; 2018-04-08)
DX: G93.41 Metabolic encephalopathy (principal); C34.32 Malignant neoplasm of lower lobe, left bronchus or lung; E21.3 Hyperparathyroidism, unspecified; F10.20 Alcohol dependence, uncomplicated; Z79.891 Long term (current) use of opiate analgesic; D64.9 Anemia, unspecified; J44.9 Chronic obstructive pulmonary disease, unspecified; I10 Essential (primary) hypertension; F41.9 Anxiety disorder, unspecified; M10.9 Gout, unspecified; H91.90 Unspecified hearing loss, unspecified ear
CPT/HCPCS: 10022; 32405; 36415; 36600; 62270; 70450; 71045; 71046; 74177; 74470; 77003; 77012; 80048; 80053; 80307; 80320; 81001; 82140; 82550; 82553; 82607; 82805; 82945; 83615; 83690; 83735; 83880; 83970; 84425; 84443; 84484; 85025; 85610; 85730; 86592; 87040; 87070; 87086; 87205; 88112; 88172; 88173; 88305; 93005; 94640; 95816; 99152; 99153; 99285; J0696; J1885; J2001; J2060; J2250; J2920; J7030; J7040; J7512; Q9967

== ENCOUNTER 2018-04-12 13:20 | Inpatient (IN) | payer MEDICARE ==
[~2018-04-12] VITALS: Ht 180.3 cm; Wt 90.4 kg
--- OUTSIDE RECORDS SUMMARY | 2018-04-12 13:23 | XMS REPORT | Clinical Summary ---
Author Author [facility] Address Unknown Phone Unavailable Care Team Providers Care Home Care Consultant Name Role Phone Asked, No Pcp PCP [...] OVER PNEUMOCOCCAL-13 2018 Results Not on fileafter 04/11/2017 Insurance Payer Benefit Subscriber ID Type Phone Address Plan / Group [employer] xxxxxxxxxxx H[place] ACCESS/[place] [address]
[2018-04-12] MEDS ORDERED: PANTOPRAZOLE 40 MG 10ML VIAL IV NR (14:00)
[2018-04-12] MEDS ORDERED: SODIUM CHLORIDE 0.9% 500ML 500 ML IV ONE (14:00)
[2018-04-12 14:15] LABS: BASOPHILS % 0.3 % (0.0-1.0); EOSINOPHILS # (AUTO) 0.3 (0.0-0.4); EOSINOPHILS % 2.3 % (0.0-6.0); HEMATOCRIT 35.5 % (38.2-49.6); HEMOGLOBIN 11.3 g/dL (14.0-18.0); LYMPHOCYTES # (AUTO) 2.4 (1.0-3.2); LYMPHOCYTES % 20.3 % (18.0-39.1); MEAN CORPUSCULAR HEMOGLOBIN 28.8 pg (28-32); MEAN CORPUSCULAR HGB CONC 31.8 g/dL (31-35); MEAN CORPUSCULAR VOLUME 90.6 fL (81-99); MONOCYTES # (AUTO) 1.4 (0.2-0.8); MONOCYTES % 11.7 % (4.4-11.3); NEUTROPHILS # (AUTO) 7.6 (2.1-6.9); NEUTROPHILS % 64.9 % (38.7-80.0); PLATELET COUNT 435 x10e3/uL (140-360); RED BLOOD COUNT 3.92 x10e6/uL (4.3-5.7); RED CELL DISTRIBUTION WIDTH 14.9 % (11.7-14.4)
[2018-04-12 14:21] LABS: INR 0.99; PARTIAL THROMBOPLASTIN TIME 32.4 seconds (23.8-35.5)
[2018-04-12 14:29] LABS: ACETAMINOPHEN < 3 ug/mL (10-30); SALICYLATE < 5.0 mg/dL (0-30)
[2018-04-12 14:31] LABS: ALANINE AMINOTRANSFERASE 22 IU/L (0-55); ALBUMIN 3.3 g/dL (3.5-5.0); ALBUMIN/GLOBULIN RATIO 0.8 (0.8-2.0); ALKALINE PHOSPHATASE 108 IU/L (40-150); ANION GAP 17.1 mmol/L (8-16); BLOOD UREA NITROGEN 15 mg/dL (7-26); BUN/CREATININE RATIO 19 (6-25); CARBON DIOXIDE 22 mmol/L (22-29); CHLORIDE 104 mmol/L (98-107); CREATINE KINASE 62 IU/L (30-200); CREATININE, SERUM 0.81 mg/dL (0.72-1.25); EST GLOMERULAR FILTRATION RATE > 60 ML/MIN (60-); GLUCOSE 89 mg/dL (74-118); MAGNESIUM 1.9 MG/DL (1.3-2.1); POTASSIUM 3.1 mmol/L (3.5-5.1); SODIUM 140 mmol/L (136-145)
[2018-04-12] MEDS ORDERED: LORAZEPAM INJ 2 MG/ML VIAL IV ONE (15:15)
--- NOTE | 2018-04-12 16:12 | Diagnostic Imaging Report ---
Examination: Single AP view of the chest. COMPARISON: Multiple comparison studies INDICATION: Altered mental status DISCUSSION: Lines/tubes: None. Lungs: Right upper lobe and left midlung mass. Pleura: No pleural effusion or pneumothorax. Heart and mediastinum: Mediastinal and hilar prominence related to adenopathy. Bones and soft tissues: No acute bony abnormalities. IMPRESSION: No acute cardiopulmonary abnormalities. Right upper lung and left midlung mass. Refer to prior biopsy. Signed by: Dr. Tal Worrell M.D. on 04/12/2018 4:08 PM
--- NOTE | 2018-04-12 16:18 | Diagnostic Imaging Report ---
EXAMINATION: Head CT HISTORY: Recently diagnosed with lung cancer, with needle alteration of consciousness COMPARISON: None. TECHNIQUE: Multidetector axial images were obtained without contrast from the foramen magnum to the vertex . The images were reconstructed using brain and bone algorithms. Thin section brain images were reformatted into coronal and sagittal planes. Image quality: Motion/streaking artifact limits the evaluation of the skull base and posterior cranial fossa. Dose modulation, iterative reconstruction, and/or weight based adjustment of the mA/kV was utilized to reduce the radiation dose to as low as reasonably achievable. FINDINGS: Parenchyma: 1. Limited evaluation due to motion artifact. 2. No mass or hemorrhage. No CT evidence of acute territorial vascular insult. Extra-axial spaces:No abnormal density. No extra-axial fluid collections Brain volume: Normal for age. Ventricles: No hydrocephalus or displacement. Arteries: No density suggestive of thrombus. Dural sinuses: No abnormal density. Extra-axial spaces: No abnormal density. Foramen magnum: No mass, Chiari malformation, or basilar invagination. Sella: No obvious mass. Paranasal/mastoid sinuses: Imaged portions unremarkable. Skull/Scalp: No lytic or blastic lesions. No fractures. IMPRESSION: Very suboptimal study due to patient motion, grossly no intracranial mass, hemorrhage, hydrocephalus, mass effect or midline shift. Consider repeat study when patient's condition allow to and if clinically indicated. Signed by: Dr. Gerri Berg M.D. on 04/12/2018 4:15 PM
[2018-04-12 16:48] LABS: AMYLASE 49 U/L (25-125); LIPASE 40 U/L (8-78)
[2018-04-12 17:41] LABS: BILIRUBIN,URINE 2+ (NEGATIVE); CLARITY,URINE SL CLOUDY (CLEAR); COLOR,URINE STRAW (YELLOW); KETONES,URINE 2+ (NEGATIVE); LEUKOCYTE ESTERASE ,URINE NEGATIVE (NEGATIVE); NITRITE,URINE NEGATIVE (NEGATIVE); PROTEIN,URINE DIPSTICK TRACE (NEGATIVE); URINE UROBILINOGEN 1 mg/dL (0.2 - 1)
[2018-04-12 17:43] LABS: AMPHETAMINES SCREEN,URINE NEGATIVE (NEGATIVE); BENZODIAZEPINES SCREEN,URINE POSITIVE (NEGATIVE); PHENCYCLIDINE SCREEN,URINE NEGATIVE (NEGATIVE)
[2018-04-12 17:56] LABS: BACTERIA,URINE FEW /HPF
[2018-04-12 17:57] LABS: MUCUS,URINE MANY (RARE)
[2018-04-12] MEDS ORDERED: ONDANSETRON HCL INJ 2 MG/ML VIAL IV PRN (18:15)
[2018-04-12] MEDS ORDERED: MORPHINE SULFATE 2 MG/ML SYR IV PRN (18:15)
[2018-04-12] MEDS ORDERED: SODIUM CHLORIDE 0.9% 1000ML 1,000 ML IV ONE (18:15)
[2018-04-12] MEDS ORDERED: MORPHINE SULFATE INJ 4 MG/ML INJ IV PRN (18:30)
--- OUTSIDE RECORDS SUMMARY | 2018-04-12 18:31 | XMS REPORT | Clinical Summary ---
Author Author [facility] Address Unknown Phone Unavailable Care Team Providers Care Waterproofer Name Role Phone Asked, No Pcp PCP [...] [employer] xxxxxxxxxxx HMO ACCESS/[place] [address]
[2018-04-12] MEDS: HYDROCODONE/APAP 10MG-325MG TAB PO PRN (19:54)
[2018-04-12 20:00] VITALS: BP 157/74
[2018-04-12 20:08] VITALS: BP 157/74
[2018-04-12] MEDS: ZOLPIDEM TARTRATE 10 MG TAB PO PRN (21:59)
[2018-04-12] MEDS: LORAZEPAM INJ 2 MG/ML VIAL IV PRN (22:02)
[2018-04-13] MEDS: HYDROCODONE/APAP 10MG-325MG TAB PO PRN ×4 (02:30→22:32)
[2018-04-13 04:33] LABS: BASOPHILS % 0.3 % (0.0-1.0); EOSINOPHILS # (AUTO) 0.4 (0.0-0.4); EOSINOPHILS % 3.7 % (0.0-6.0); HEMATOCRIT 29.4 % (38.2-49.6); HEMOGLOBIN 9.4 g/dL (14.0-18.0); LYMPHOCYTES % 17.8 % (18.0-39.1); MEAN CORPUSCULAR HEMOGLOBIN 29.3 pg (28-32); MEAN CORPUSCULAR VOLUME 91.6 fL (81-99); MONOCYTES # (AUTO) 1.5 (0.2-0.8); MONOCYTES % 13.1 % (4.4-11.3); NEUTROPHILS # (AUTO) 7.4 (2.1-6.9); NEUTROPHILS % 64.7 % (38.7-80.0); PLATELET COUNT 326 x10e3/uL (140-360); RED BLOOD COUNT 3.21 x10e6/uL (4.3-5.7); RED CELL DISTRIBUTION WIDTH 14.7 % (11.7-14.4)
[2018-04-13 04:50] VITALS: BP 141/69
[2018-04-13 04:55] LABS: ALANINE AMINOTRANSFERASE 18 IU/L (0-55); ALBUMIN 2.8 g/dL (3.5-5.0); ALBUMIN/GLOBULIN RATIO 0.8 (0.8-2.0); ALKALINE PHOSPHATASE 85 IU/L (40-150); ANION GAP 14.2 mmol/L (8-16); BLOOD UREA NITROGEN 16 mg/dL (7-26); BUN/CREATININE RATIO 20 (6-25); CALCIUM 8.9 mg/dL (8.4-10.2); CARBON DIOXIDE 20 mmol/L (22-29); CHLORIDE 107 mmol/L (98-107); CREATININE, SERUM 0.79 mg/dL (0.72-1.25); EST GLOMERULAR FILTRATION RATE > 60 ML/MIN (60-); GLUCOSE 88 mg/dL (74-118); POTASSIUM 3.2 mmol/L (3.5-5.1); SODIUM 138 mmol/L (136-145)
[2018-04-13] MEDS: METOPROLOL TARTRATE 25 MG TAB PO SCH ×2 (05:37→17:42)
[2018-04-13 05:51] LABS: CREATINE KINASE MB 2.6 ng/mL (0-5.0)
[2018-04-13] MEDS: LORAZEPAM INJ 2 MG/ML VIAL IV PRN ×2 (05:59→21:22)
[2018-04-13 08:00] VITALS: BP 158/74
[2018-04-13 09:51] VITALS: BP 158/74
[2018-04-13 16:44] VITALS: BP 176/74
[2018-04-13 20:00] VITALS: BP 137/77
[2018-04-13 20:23] VITALS: BP 137/77
[2018-04-13] MEDS: ALBUTEROL SULF 0.083% NEB SOLN 3 ML NEB NEB PRN (21:10)
[2018-04-13] MEDS: ZOLPIDEM TARTRATE 10 MG TAB PO PRN (22:04)
[2018-04-14] VITALS (8 sets, daily range): BP systolic 105–130; BP diastolic 58–74
[2018-04-14] MEDS: LORAZEPAM INJ 2 MG/ML VIAL IV PRN ×3 (03:29→19:09)
[2018-04-14] MEDS: METOPROLOL TARTRATE 25 MG TAB PO SCH ×2 (05:30→16:41)
[2018-04-14] MEDS: HYDROCODONE/APAP 10MG-325MG TAB PO PRN ×3 (08:35→20:37)
[2018-04-14] MEDS: BUDESONIDE/FORMOTEROL 160/4.5MCG INHALER INH PRN (09:02)
[2018-04-14] MEDS: ALBUTEROL SULF 0.083% NEB SOLN 3 ML NEB NEB PRN (19:40)
[2018-04-14] MEDS: ZOLPIDEM TARTRATE 10 MG TAB PO PRN (22:56)
[2018-04-15] VITALS (7 sets, daily range): BP systolic 102–137; BP diastolic 55–81
[2018-04-15] MEDS: LORAZEPAM INJ 2 MG/ML VIAL IV PRN ×4 (01:00→17:33)
[2018-04-15] MEDS: HYDROCODONE/APAP 10MG-325MG TAB PO PRN ×4 (02:48→21:45)
[2018-04-15] MEDS: METOPROLOL TARTRATE 25 MG TAB PO SCH ×2 (05:56→17:09)
[2018-04-15] MEDS: BUDESONIDE/FORMOTEROL 160/4.5MCG INHALER INH PRN (06:49)
--- NOTE | 2018-04-15 09:02 | Progress Note ---
DATE: April 14, 2018 FOLLOWUP PROGRESS NOTE REASON FOR FOLLOWUP: Pain management. This patient has multiple issues and ongoing pain being that with lung cancer came to the hospital with disoriented status. Now, is gradually improving and doing much better. Pain is 2/10 on a scale of 10/10. Pain is constant, and again, dull, sharp feeling, burning, and debilitating excruciating pain. PHYSICAL EXAMINATION GENERAL: Pain but in no acute distress. VITAL SIGNS: Blood pressure 115/68, heart rate 94, temperature 98.3, height 5 feet 11 inches, weight 199 pounds, BMI 27. HEENT: Normocephalic. NECK: Supple. LUNGS: Air entry bilaterally. HEART: S1 and S2. ABDOMEN: Soft. BACK: There is a small lipoma tumor. ALLERGIES: HE IS ALLERGIC TO CODEINE AND STRAWBERRIES. CURRENT MEDICATIONS: Consist of albuterol along with and hydrocodone q.4 h. p.r.n. and prednisone. LAB DATA: All reviewed. Hemoglobin 9.4, hematocrit 29.4. ASSESSMENT AND PLAN: The patient with multiple issues and ongoing pain. Pain is very well under control with current medications. He has lung cancer. I appreciate him being consulted with Dr. Rey Tony, who is the oncologist for his care. Will continue lorazepam also. Monitor the patient. Job#: [id number] MEENA
[2018-04-15] MEDS ORDERED: GADOBENATE DIMEGLUMINE 1 ML IV ONE (13:05)
--- NOTE | 2018-04-15 13:58 | Consultation ---
DATE OF CONSULTATION: April 15, 2018 PSYCHIATRIC CONSULTATION REASON FOR CONSULTATION: To evaluate the patient's confusion and psychosis. HISTORY OF PRESENT ILLNESS: The patient is a 63-year-old male admitted to the hospital. He has a history of lung cancer. He was sent to the hospital for altered mental status and confusion. Upon evaluation today, the patient is found to be in the room sitting in the bed. He is alert, awake and oriented to situation, self, place and time. He states that he is hospitalized because of confusion. He claims that he is doing better. The patient appears to be confused. He states that he has some anxiety at times due to his medical issues. He takes Ativan, which he claims seems to help him. He denies any suicidal or homicidal ideation at this time. He denies any hallucinations. He denies any problem with sleep, but he does have some Ambien, which he has been taking intermittently for his sleep. He denies any appetite problem. The patient states he is currently being treated for his lung cancer. PAST PSYCHIATRIC HISTORY: The patient denies any past psychiatric history. He denies past suicide attempt. He denies alcohol and drug use. FAMILY HISTORY: Denied. SOCIAL HISTORY: The patient lives with his . MENTAL STATUS EXAMINATION: The patient is an elderly, thin, male. He is alert, awake and oriented to situation. Mood is anxious. Affect is congruent with mood. He denies any suicidal or homicidal ideation. He denies any hallucination. Thought process is concrete. No delusion or paranoia elicited. Insight and judgment are fair. Memory appears to be grossly intact. Overall, he does have some bruises to both arms. CURRENT MEDICATIONS 1. [place]. 2. Symbicort. 3. Lopressor. 4. Albuterol. 5. Zofran. 6. Protonix. 7. Ativan 1 mg IV q.6 h. p.r.n. 8. Ambien 10 mg p.o. nightly p.r.n. LABS: WBC 11.75, RBC 3.92, hemoglobin 11.3, hematocrit 35.5, platelets 435. Chemistry: Sodium 138, potassium 3.2, chloride 107, CO2 20, BUN 16, creatinine 0.79. ASSESSMENT: Unspecified psychosis/delirium, resolved; adjustment disorder with mixed anxiety. PLAN 1. Discontinue Ambien p.r.n. as this can cause confusion. 2. Reduce Ativan 1 mg IV q.6 h. p.r.n. to 0.5 mg IV q.6 h. p.r.n. 3. Add Ativan 0.5 mg p.o. q.6 h. p.r.n. 4. Add Wellbutrin 75 mg p.o. daily. 5. Add trazodone 50 mg p.o. nightly p.r.n. for insomnia. 6. Supportive therapy. 7. Monitor for mood and psychosis. Thank you for this consultation. Dictated by: ELBA Whaley Job#: [id number]
[2018-04-15] MEDS: TRAZODONE HCL 50 MG TAB PO PRN (18:52)
[2018-04-16] VITALS (7 sets, daily range): BP systolic 106–146; BP diastolic 59–80
[2018-04-16] MEDS: LORAZEPAM INJ 2 MG/ML VIAL IV PRN ×4 (00:30→18:00)
[2018-04-16] MEDS: METOPROLOL TARTRATE 25 MG TAB PO SCH ×2 (05:30→15:30)
[2018-04-16] MEDS ORDERED: OXYMETAZOLINE HCL 0.05% NAS 1 SPRAY BTL ONE (09:11)
[2018-04-16] MEDS ORDERED: LIDOCAINE HCL 4% 50 ML BTL ONE (09:11)
[2018-04-16] MEDS ORDERED: LIDOCAINE HCL 2% 30 ML TUBE ONE (09:11)
[2018-04-16] MEDS ORDERED: EPINEPHRINE HCL INJ 1 MG/ML AMP ONE (09:11)
[2018-04-16] MEDS: BUPROPION HCL 75 MG TAB PO SCH (11:27)
[2018-04-16] MEDS: HYDROCODONE/APAP 10MG-325MG TAB PO PRN ×2 (11:27→18:00)
[2018-04-16 12:03] LABS: BODY FLUID APPEARANCE SL.CLOUDY; BODY FLUID COLOR RED
[2018-04-16 12:27] LABS: RBC,BODY FLUID 49104 cells/uL; WBC,BODY FLUID 99 cells/uL
[2018-04-16 12:29] LABS: LYMPHOCYTES,BODY FLUID 37 %; MONO/MACROPHG,BODY FLUID 5 %; NEUTROPHILS,BODY FLUID 52 %; OTHER CELLS,BODY FLUID 6 %
--- NOTE | 2018-04-16 13:46 | Diagnostic Imaging Report ---
EXAMINATION: CHEST SINGLE (PORTABLE) INDICATION: Confusion. Lung cancer. Bronchoscopy. COMPARISON: 04/08/201818 DISCUSSION: Lines/tubes: None. Lungs: Right upper lobe and left midlung mass. Pleura: No pleural effusion or pneumothorax. Heart and mediastinum: Mediastinal and hilar prominence related to adenopathy. Bones and soft tissues: No acute bony abnormalities. Degenerative changes in the thoracic spine. IMPRESSION: No acute cardiopulmonary abnormalities. Right upper lung and left midlung mass. Refer to prior biopsy. Signed by: Dr. Maciel Amin M.D. on 04/16/2018 1:43 PM
--- NOTE | 2018-04-16 14:10 | Operative Report ---
DATE OF PROCEDURE: April 16, 2018 PROCEDURE PERFORMED: Bronchoscopy with bronchoalveolar lavage and transbronchial lung biopsy. PREPROCEDURE DIAGNOSIS: Abnormal CT chest. POSTPROCEDURE DIAGNOSIS: Normal endobronchial airways. PROCEDURE IN DETAIL: The bronchoscope was advanced through the LMA. The vocal cords were identified. There was a small nodule in the left vocal cord. Bronchoscope was entered into the trachea. The vandana was identified. Both lungs were examined to the segmental level. The right upper lobe, right middle lobe, and right lower lobe were examined. No endobronchial lesion was seen. The left upper lobe lingula and left lower lobe were examined, and no endobronchial lesion was seen. Transbronchial lung biopsy was done for the left upper lobe mass. Biopsies were sent for pathology. This was followed by cytology brush and BAL. Postprocedure complications were none. Postprocedure chest x-ray is pending. Estimated blood loss around 4 to 5 mL. Job#: [id number]
[2018-04-16] MEDS: LORAZEPAM 0.5 MG TAB PO PRN (14:35)
[2018-04-16] MEDS ORDERED: MIDAZOLAM HCL 2 MG/2 ML VIAL ONE (15:01)
[2018-04-16] MEDS ORDERED: FENTANYL CITRATE/PF 100MCG/2 ML INJ ONE (15:01)
[2018-04-16] MEDS ORDERED: LIDOCAINE HCL 2% LOCAL INJ 5 ML SDV VIAL INJ ONE (15:21)
[2018-04-16] MEDS ORDERED: SEVOFLURANE INHAL SOLN 250 ML PEN BTL ONE (15:21)
[2018-04-16] MEDS ORDERED: ONDANSETRON HCL INJ 2 MG/ML VIAL ONE (15:21)
[2018-04-16] MEDS ORDERED: DEXAMETHASONE SOD PHOS INJ 4 MG/ML VIAL ONE (15:21)
[2018-04-16] MEDS ORDERED: PROPOFOL IV EMULSION 10 MG/ML 20 ML VIAL ONE (15:21)
[2018-04-16] MEDS: TRAZODONE HCL 50 MG TAB PO PRN (19:34)
[2018-04-17] VITALS: BP 127/76
[2018-04-17 04:00] VITALS: BP 132/72
[2018-04-17] MEDS: LORAZEPAM INJ 2 MG/ML VIAL IV PRN ×2 (06:02)
[2018-04-17] MEDS: HYDROCODONE/APAP 10MG-325MG TAB PO PRN ×4 (06:03→17:29)
[2018-04-17] MEDS: METOPROLOL TARTRATE 25 MG TAB PO SCH ×2 (06:06→17:26)
--- NOTE | 2018-04-17 07:02 | Progress Note ---
DATE: April 16, 2018 PSYCHIATRIC PROGRESS NOTE Patient was evaluated and events noted. The patient is found in the room with his . He is alert, awake and oriented to situation. He is not confused. He is not agitated or combative. He is very calm, pleasant and cooperative. He states he is doing fairly okay. He denies depression. He reports intermittent anxiety. He does have medication for anxiety. Denies any hallucinations. He denies any problems with sleep or appetite. He is taking his medications, and he denies any side effects. Discussed with the . She states that the patient is doing well with intermittent anxiety. ASSESSMENT: Unspecified psychosis; adjustment disorder with mixed mood. PLAN: Continue with Ativan p.r.n. p.o. and IV. Continue with Wellbutrin 75 mg p.o. daily. Continue with trazodone 50 mg p.o. at bedtime p.r.n. Monitor for mood. Supportive therapy. DICTATED BY ELBA BISHOP Job#: [id number] ND
[2018-04-17 08:00] VITALS: BP 101/59
[2018-04-17] MEDS: BUPROPION HCL 75 MG TAB PO SCH (09:00)
--- NOTE | 2018-04-17 10:49 | Progress Note ---
DATE: April 17, 2018 This patient was been admitted for acute change in his mental status and also lung mass, which has been biopsied and diagnosed as possible cancer. The patient is not confused right now. Doing well and eager to go home. Pain management has been consulted for pain control. At this time, the patient has no change. OBJECTIVE VITALS: Temperature is 97.7, pulse of 94, blood pressure 127/76, SpO2 of 98%. HEENT: Normocephalic and atraumatic. Pupils are reactive to light and accommodation. LUNGS: Clear to auscultation bilaterally. ABDOMEN: Nontender and nondistended. NEUROLOGICAL: Nonfocal. PSYCHIATRIC: No depression. Positive for anxiety, which is being controlled. MEDICATIONS: He is takin. Metoprolol 25 mg q.12 h. 2. Hydrocodone 1 q.6 h. 3. Lorazepam 0.5 mg q.6 h. 4. Bupropion 75 mg daily. LABS: BUN and creatinine from April 13, 2018, at 16 and 0.7. Hemoglobin is 9.4 and 29.4. Other labs have been normal so far. Pathology of lung is noncontributory at this time. Dr. Tony has been consulted. The patient is stable. ASSESSMENT 1. Lung cancer: Continue care. Follow up with oncology after discharge. 2. Anemia, stable: Continue monitoring it. 3. Hypertension, stable: Continue medications. Pain management controlled. The patient can be discharged today depending on consultants. Further recommendations as an outpatient. Will need to be followed up at oncology. For further information, look in the chart. Job#: [id number] MEENA
[2018-04-17 12:00] VITALS: BP 112/56
[2018-04-17] MEDS: LORAZEPAM 0.5 MG TAB PO PRN (12:08)
--- NOTE | 2018-04-17 14:40 | Progress Note ---
DATE: April 17, 2018 PSYCHIATRIC PROGRESS NOTE SUBJECTIVE: The patient is evaluated and events noted. The patient is in the room. He is alert, awake and oriented to situation. He is not confused. He is not agitated or combative. The patient is cooperative. He states that he is doing better. His mood is okay. He denies any depression. He denies any anxiety. He denies any hallucinations or suicidal ideation. He denies any problem with sleep or appetite. ASSESSMENT : Unspecified psychosis; adjustment disorder with mixed mood. PLAN: 1. Continue Ativan 0.5 mg q.6 h. p.r.n. 2. Continue Wellbutrin 75 mg p.o. daily. 3. Continue Ativan 0.5 mg IV q.6 h. p.r.n. 4. Continue trazodone 50 mg p.o. nightly p.r.n. 5. Monitor for mood. Dictated by: ELBA Whaley Job#: [id number]
[2018-04-17 16:00] VITALS: BP 119/56
--- NOTE | 2018-04-17 16:52 | Consultation ---
DATE OF CONSULTATION: INCOMPLETE REPORT Job#: [id number] EV
--- NOTE | 2018-06-09 11:45 | Consultation ---
DATE OF CONSULTATION: HISTORY: Mr. Nazario is a 63-year-old male who has been referred to me for evaluation of lung cancer. The patient presented with shortness of breath and confusion. SOCIAL HISTORY: History of excessive smoking. FAMILY HISTORY: Noncontributory. ALLERGIES: REPORTED CODEINE. MEDICATIONS: At this time, 1. Albuterol. 2. Protonix. 3. Ondansetron. 4. Tylenol with hydrocodone. 5. Lorazepam. 6. Budesonide. 7. Lorazepam. 8. Metoprolol. REVIEW OF SYSTEMS: HEENT: Normal. CARDIAC: History of hypertension. RESPIRATORY: No lung cancer or COPD. GI: Normal. : Normal. MUSCULOSKELETAL: Normal. SKIN AND BREASTS: Normal. NEUROENDOCRINE: Essentially normal. PHYSICAL EXAMINATION: GENERAL: A moderately built male. He is 5 feet 11 inches tall, weighs 199 pounds. No palpable adenopathy. HEART: Within normal limits. LUNGS: Diffuse rales. ABDOMEN: Obese. RECTAL: Deferred. CENTRAL NERVOUS SYSTEM: Essentially normal. EXTREMITIES: Essentially normal. LABORATORY DATA: Investigations of interest show a sodium of 138, potassium 3.2, chloride 107, CO2 20, BUN 16, creatinine 0.7, glucose 88, hemoglobin of 9.4, hematocrit 29.4[place] [address], platelets of 326,000, INR 0.9, bilirubin 0.7, SGOT 17, SGPT 18, alkaline phosphatase 85. The patient does have mediastinal adenopathy, hilar adenopathy, right upper lobe mass and left middle lobe mass by CAT scan. IMPRESSION: 1. Anemia of chronic disease (9.4 g). 2. Hypokalemia (3.1 mEq). 3. Hypoalbuminemia (3.3 mg). 4. Hyperglobulinemia (4.1). 5. Right upper lobe mass 5.5 cm. 6. Left middle lobe mass 5.5 cm. 7. Mediastinal adenopathy. 8. Hilar adenopathy. PLAN, COMMENTS AND SUGGESTIONS: Repeat the biopsy as index of suspicion is very high that this is a malignancy. This possibly has an adenocarcinoma since inoperable EGFR. is suggested. The patient was discharged for a follow up as outpatient. Job#: [id number] [facility] cc:MD MARNI SHEA MD
--- NOTE | 2018-06-10 09:40 | Consultation ---
DATE OF CONSULTATION: April 12, 2018 PAIN MANAGEMENT CONSULTATION REASON FOR PAIN MANAGEMENT: Chronic pain syndrome and lung cancer. Mr. Chetan Nazario is a 63-year-old white male with history of smoking for 35 years, and had developed lung cancer, and came back with altered mental status after lung mass biopsy was done at [facility]. Found to have lung cancer by oncologist. He had a lung biopsy done. History of low back pain, chronic pain syndrome, COPD, and back surgery in the past. Pain is 2-10/10 on the scale with 10 being worse. Pain is constant. It is dull, sharp, burning, stabbing, and excruciating pain especially in the upper back area. He got completely. PAST MEDICAL HISTORY: Lung cancer, hypertension, GERD, chronic pain syndrome, chronic back pain syndrome, smoking history. PAST SURGICAL HISTORY: Nothing contributory except the lung biopsy done at [facility]. FAMILY HISTORY: Hypertension. SOCIAL HISTORY: Denies any alcohol or illicit drug use. ALLERGIES: HE IS ALLERGIC CODEINE. MEDICATIONS: He is on multiple medications for pain control, including hydrocodone 1 tablet q.4 h. p.r.n. pain. Had been prescribed alprazolam by his oncologist. See MAR. REVIEW OF SYSTEMS: A 14-point review was limited except mentioned in the history of present illness. No fever. No eye problems. No hemoptysis. No urinary problems. No psych condition. SKIN: Intact. HEART: Regular rate and rhythm. GASTROINTESTINAL/ABDOMEN: Soft. BACK: Back pain issue in the past. Medically intact. ENDOCRINE: No history of diabetes. No allergies except to codeine. PHYSICAL EXAMINATION GENERAL: In pain but no in acute distress. VITAL SIGNS: Within normal limits. HEENT: Normocephalic. NECK: Supple. LUNGS: Air entry bilaterally. HEART: Regular rate and rhythm. ABDOMEN: Soft and nontender. EXTREMITIES: No edema. NEUROLOGICAL: Grossly nonfocal. LABORATORY: Noted. ASSESSMENT AND PLAN 1. This patient with pain. 2. Encephalopathy. 3. Toxic nephropathy. 4. Lung pain can be due to lung cancer. 5. Hyponatremia. 6. Anemia. The patient is in pain, but not acute distress. Will continue supportive care for the patient. Will follow him very closely. He has end-stage cancer, not amenable to any further benefits. Maybe hematology will give him possible options for him. I had a detailed discussion with the in detail regarding the possible management of pain control for his lung mass. Advised him to see the oncologist and follow up with him as an outpatient. Will follow him. Job#: [id number] MEENA
== END 2018-04-17 18:24 | disposition home or self-care (01) | DRG 166 ==
LOC: ER 13:20 → ERHOLD 18:28 → MED/SURG2 18:55
PROVIDERS: ADMIT Internal Medicine; ATTEND Internal Medicine
PROC: 0B9G8ZX Drainage of Left Upper Lung Lobe, Via Natural or Artificial Opening Endoscopic, Diagnostic (ICD-10-PCS; principal; 2018-04-16 10:00)
PROC: 0BBG8ZX Excision of Left Upper Lung Lobe, Via Natural or Artificial Opening Endoscopic, Diagnostic (ICD-10-PCS; 2018-04-16 10:00)
DX: C34.12 Malignant neoplasm of upper lobe, left bronchus or lung (principal); G92 Toxic encephalopathy; E87.6 Hypokalemia; Z87.891 Personal history of nicotine dependence; Z82.49 Family history of ischemic heart disease and other diseases of the circulatory system; K21.9 Gastro-esophageal reflux disease without esophagitis; I10 Essential (primary) hypertension; Z88.5 Allergy status to narcotic agent; Z91.018 Allergy to other foods; F43.23 Adjustment disorder with mixed anxiety and depressed mood; J44.9 Chronic obstructive pulmonary disease, unspecified; D63.8 Anemia in other chronic diseases classified elsewhere; E88.09 Other disorders of plasma-protein metabolism, not elsewhere classified; R59.0 Localized enlarged lymph nodes; R77.1 Abnormality of globulin
CPT/HCPCS: 31623; 31625; 36415; 51700; 70450; 71045; 76001; 80053; 80307; 80320; 80329; 81001; 82140; 82150; 82330; 82378; 82550; 82553; 83605; 83690; 83735; 84484; 85025; 85610; 85730; 87040; 87086; 87102; 87205; 87206; 87335; 88112; 88305; 88342; 89051; 93005; 94640; 99284; J0171; J1100; J2001; J2060; J2250; J2405; J7030; J7040

== ENCOUNTER → 2018-07-08 | Day surgery (SDC) | payer MEDICARE ==
[~2018-07-08] MED LIST changes: +BUPIVACAINE 0.25% 30ML SDV INJ ONE; +CEFAZOLIN SOD 1 GM VIAL ONE; +CITALOPRAM HBR20 MG PO; +DEXAMETHASONE SOD PHOS INJ 4 MG/ML VIAL ONE; +FENTANYL CITRATE/PF 100MCG/2 ML INJ ONE; +HEPARIN SOD (PORCINE) 5,000 UNIT/ML VIAL ONE; +LIDOCAINE HCL 2% LOCAL INJ 5 ML SDV VIAL INJ ONE; +METHADONE HCL10 MG PO; +MIDAZOLAM HCL 2 MG/2 ML VIAL ONE; +ONDANSETRON HCL INJ 2MG/ML 2ML 2 MG/ML VIAL ONE; +PHENYLEPHRINE HCL 1% 10 MG/ML VIAL ONE; +PROPOFOL IV EMULSION 10 MG/ML 20 ML VIAL ONE; +SEVOFLURANE INHAL SOLN 250 ML PEN BTL ONE; +SODIUM CHLORIDE 0.9% 500ML 500 ML ONE
--- OUTSIDE RECORDS SUMMARY | 2018-07-08 09:23 | XMS REPORT | Clinical Summary ---
Author Author [facility] Organization [facility] Address Unknown Phone Unavailable Care Team Providers Care Doctor Of Nurse Anesthesia Name Role Phone Asked, No Pcp PCP Unavailable Allergies No Known Allergies Medications No known medications Active Problems Not on file Social History Date Tobacco Use Types Packs/Day Years Used Former Smoker Smokeless Tobacco: Former Quit: 09/21/2013 User Alcohol Use Drinks/Week oz/Week Comments No Sex Assigned at Date Recorded Not on file Industry Job Start Date Occupation Not on file Not on file Not on file Travel End Travel History Travel Start No recent travel history available. Last Filed Vital Signs Not on file Plan of Treatment Health Maintenance Due Date Last Done Comments COLON CANCER SCREENING 2003 SHINGLES VACCINES (1 of 2003 2) INFLUENZA VACCINE 01/09/2018 PNEUMOCOCCAL 2018 POLYSACCHARIDE VACCINE AGE 65 AND OVER PNEUMOCOCCAL-13 2018 Results Not on fileafter 07/07/2017 Insurance Payer Benefit Subscriber ID Type Phone Address Plan / Group [employer] CIGNA OPEN xxxxxxxxxxx HMO ACCESS/NET WORK (Home) [place] [address] Advance Directives Patient has advance care planning documents on file. For more information, gila peralta contact: Al Banks [address] [place] [address]
[2018-07-08 10:11] LABS: BASOPHILS % 0.3 % (0.0-1.0); EOSINOPHILS # (AUTO) 0.7 (0.0-0.4); EOSINOPHILS % 6.1 % (0.0-6.0); HEMATOCRIT 32.3 % (38.2-49.6); HEMOGLOBIN 9.7 g/dL (14.0-18.0); LYMPHOCYTES # (AUTO) 1.2 (1.0-3.2); LYMPHOCYTES % 11.3 % (18.0-39.1); MEAN CORPUSCULAR HEMOGLOBIN 24.9 pg (28-32); MONOCYTES # (AUTO) 0.9 (0.2-0.8); MONOCYTES % 8.3 % (4.4-11.3); NEUTROPHILS % 73.6 % (38.7-80.0); PLATELET COUNT 378 x10e3/uL (140-360); RED BLOOD COUNT 3.89 x10e6/uL (4.3-5.7); RED CELL DISTRIBUTION WIDTH 14.6 % (11.7-14.4)
[2018-07-08 10:50] LABS: ALANINE AMINOTRANSFERASE 15 IU/L (0-55); ALBUMIN/GLOBULIN RATIO 0.7 (0.8-2.0); ALKALINE PHOSPHATASE 110 IU/L (40-150); ANION GAP 16.8 mmol/L (8-16); BLOOD UREA NITROGEN 14 mg/dL (7-26); BUN/CREATININE RATIO 19 (6-25); CALCIUM 10.2 mg/dL (8.4-10.2); CARBON DIOXIDE 24 mmol/L (22-29); CHLORIDE 104 mmol/L (98-107); CREATININE, SERUM 0.74 mg/dL (0.72-1.25); EST GLOMERULAR FILTRATION RATE > 60 ML/MIN (60-); GLUCOSE 95 mg/dL (74-118); POTASSIUM 3.8 mmol/L (3.5-5.1); SODIUM 141 mmol/L (136-145)
--- NOTE | 2018-07-08 13:45 | Diagnostic Imaging Report ---
Examination: Single AP view of the chest. COMPARISON: 04/16/2018 INDICATION: Status post port placement DISCUSSION: Interval placement of a right subclavian approach central venous port catheter. The tip projects over the mid superior vena cava. No pneumothorax. Left midlung and right apical pulmonary masses are seen to better advantage on comparison CT 03/19/2018. Unchanged cardiomediastinal contour. No acute osseous abnormality. IMPRESSION: Interval placement of right subclavian port catheter, with the tip projecting over the mid superior vena cava. No pneumothorax. Stable bilateral pulmonary masses. Refer to CT chest without contrast 03/19/2018 for further description. Signed by: Dr. Ganesh Ibarra M.D. on 07/08/2018 1:42 PM
[2018-07-08 14:15] VITALS: BP 129/73
--- NOTE | 2018-07-08 14:19 | Operative Report ---
DATE OF PROCEDURE: July 08, 2018 PREOPERATIVE DIAGNOSIS: Lung cancer needing intravenous access for chemotherapy. POSTOPERATIVE DIAGNOSIS: Lung cancer needing intravenous access for chemotherapy. OPERATION PERFORMED: Placement of right subclavian venous access port under C-arm guidance. ANESTHESIA: General. COMPLICATIONS: None. ESTIMATED BLOOD LOSS: 25 mL. DESCRIPTION OF PROCEDURE: With the patient lying in bed in the Trendelenburg position under good general anesthesia, the right chest and neck were prepped with Betadine solution and draped in the usual manner. A needle was introduced into the right subclavian vein, and a guidewire was advanced into central venous position under C-arm guidance. There was some tightness of the junction of the subclavian and internal jugular vein likely secondary to adenopathy in this area. Using the C-arm, the guidewire was confirmed to be at the level of the of the superior vena cava, and the right lung was fully expanded. A pocket was then created in the right anterior chest to accept the reservoir. The peel-away sheath was then placed over the guidewire, and the catheter was threaded with the guidewire within the catheter in order to be able to traverse the tight spot at the junction of the subclavian vein and in the jugular vein. The catheter was threaded into the superior vena cava without any difficulty. After this was done, the catheter was cut to the appropriate length and was then joined with the reservoir. There was good blood return, and the catheter and reservoir were fully heparinized. The reservoir was then anchored to the anterior chest wall with interrupted sutures of 2-0 silk. There was good blood return, and the reservoir and catheter were fully heparinized. Using the C-arm, the tip was confirmed to be at the level of the superior vena cava. The right lung was fully expanded. The wounds were then closed in layers. The subcutaneous tissue was approximated with 3-0 and 4-0 Vicryl, and the skin was closed with subcuticular 5-0 Vicryl. Benzoin and Steri-Strips were applied. A dressing was placed. The sponge, lap and needle count was correct. Patient tolerated the procedure well and returned to the recovery room in stable condition. Job#: [id number]
== END | disposition home or self-care (01) ==
LOC: OR 09:20
PROVIDERS: ATTEND Surgery
DX: C34.90 Malignant neoplasm of unspecified part of unspecified bronchus or lung (principal); K58.9 Irritable bowel syndrome, unspecified; J44.9 Chronic obstructive pulmonary disease, unspecified; I10 Essential (primary) hypertension; M19.90 Unspecified osteoarthritis, unspecified site; F32.9 Major depressive disorder, single episode, unspecified; F41.9 Anxiety disorder, unspecified; Z88.6 Allergy status to analgesic agent; Z87.891 Personal history of nicotine dependence
CPT/HCPCS: 36415; 36561; 77001; 80053; 85025; C1751; J0690; J1100; J1644; J2001; J2250; J2370; J2405; J2704; J7040; 71045

== ENCOUNTER → 2018-10-10 | Outpatient (CLI) | payer MEDICARE ==
[~2018-10-10] MED LIST changes: -BUPIVACAINE 0.25% 30ML SDV INJ ONE; -CEFAZOLIN SOD 1 GM VIAL ONE; -DEXAMETHASONE SOD PHOS INJ 4 MG/ML VIAL ONE; -FENTANYL CITRATE/PF 100MCG/2 ML INJ ONE; -HEPARIN SOD (PORCINE) 5,000 UNIT/ML VIAL ONE; -LIDOCAINE HCL 2% LOCAL INJ 5 ML SDV VIAL INJ ONE; -MIDAZOLAM HCL 2 MG/2 ML VIAL ONE; -ONDANSETRON HCL INJ 2MG/ML 2ML 2 MG/ML VIAL ONE; -PHENYLEPHRINE HCL 1% 10 MG/ML VIAL ONE; -PROPOFOL IV EMULSION 10 MG/ML 20 ML VIAL ONE; -SEVOFLURANE INHAL SOLN 250 ML PEN BTL ONE; -SODIUM CHLORIDE 0.9% 500ML 500 ML ONE
--- NOTE | 2018-10-10 11:19 | Diagnostic Imaging Report ---
EXAMINATION: CHEST 2 VIEWS INDICATION: Lung cancer. COMPARISON: Chest radiograph 07/08/2018. DISCUSSION: Lines/tubes: Right-sided chest port terminates in the upper SVC. Lungs: Right upper lobe mass and left midlung mass appear less prominent when compared to the prior study. No new consolidation or pulmonary edema. Pleura: No pleural effusion or pneumothorax. Heart and mediastinum: Mediastinal and hilar prominence related to adenopathy appear less pronounced compared to the prior radiograph. The cardiac silhouette is unremarkable. Bones and soft tissues: No acute osseous abnormality. No suspicious lytic or blastic lesions. IMPRESSION: Interval decrease in prominence of right upper lung and left midlung masses as well as mediastinal and hilar lymphadenopathy. Findings may reflect interval treatment. Chest CT may be considered for further evaluation. Signed by: Dr. Austin Marquis MD on 10/10/2018 11:16 AM
== END ==
LOC: RAD 10:17
PROVIDERS: ATTEND Internal Medicine Medical Oncology
DX: C34.90 Malignant neoplasm of unspecified part of unspecified bronchus or lung (principal)
CPT/HCPCS: 71046

== ENCOUNTER 2018-10-21 15:05 | Inpatient (IN) | payer MEDICARE ==
[~2018-10-21] VITALS: Ht 180.3 cm; Wt 72.1 kg
--- OUTSIDE RECORDS SUMMARY | 2018-10-21 15:07 | XMS REPORT | Clinical Summary ---
Author Author Al [facility] Organization [facility] Address Unknown Phone Unavailable Care Team Providers Care Global Regulatory Lead Name Role Phone Asked, No Pcp PCP [...] Comments COLON CANCER SCREENING 2003 SHINGLES VACCINES (#1) 2003 65+ PNEUMOCOCCAL VACCINE 2018 (1 of 2 - PCV13) PNEUMOCOCCAL 2018 POLYSACCHARIDE VACCINE AGE 65 AND OVER INFLUENZA VACCINE 01/09/2019 Results Not on fileafter 10/20/2017 Insurance Payer Benefit Subscriber ID Type Phone Address Plan / Group [employer] C[employer] OPEN xxxxxxxxxxx HMO ACCESS/NET WORK (Home) [place] [address] Advance Directives Patient has advance care planning documents on file. For more information, pleas e contact: Al Banks [address] [place] [address]
[2018-10-21 16:33] LABS: BASOPHILS % 0.2 % (0.0-1.0); EOSINOPHILS # (AUTO) 0.1 (0.0-0.4); EOSINOPHILS % 0.8 % (0.0-6.0); HEMATOCRIT 30.6 % (38.2-49.6); HEMOGLOBIN 9.5 g/dL (14.0-18.0); LYMPHOCYTES # (AUTO) 1.4 (1.0-3.2); LYMPHOCYTES % 15.1 % (18.0-39.1); MEAN CORPUSCULAR HEMOGLOBIN 26.7 pg (28-32); MONOCYTES # (AUTO) 0.8 (0.2-0.8); MONOCYTES % 8.6 % (4.4-11.3); NEUTROPHILS # (AUTO) 6.7 (2.1-6.9); PLATELET COUNT 315 x10e3/uL (140-360); RED BLOOD COUNT 3.56 x10e6/uL (4.3-5.7); RED CELL DISTRIBUTION WIDTH 17.9 % (11.7-14.4)
[2018-10-21 16:45] LABS: ALANINE AMINOTRANSFERASE 33 IU/L (0-55); ALBUMIN/GLOBULIN RATIO 0.7 (0.8-2.0); ALKALINE PHOSPHATASE 96 IU/L (40-150); ANION GAP 19.2 mmol/L (8-16); BLOOD UREA NITROGEN 15 mg/dL (7-26); BUN/CREATININE RATIO 19 (6-25); CALCIUM 11.3 mg/dL (8.4-10.2); CARBON DIOXIDE 26 mmol/L (22-29); CHLORIDE 96 mmol/L (98-107); CREATINE KINASE 33 IU/L (30-200); CREATININE, SERUM 0.81 mg/dL (0.72-1.25); EST GLOMERULAR FILTRATION RATE > 60 ML/MIN (60-); GLUCOSE 102 mg/dL (74-118); POTASSIUM 4.2 mmol/L (3.5-5.1); SODIUM 137 mmol/L (136-145)
[2018-10-21] MEDS ORDERED: SODIUM CHLORIDE 0.9% 1000ML 1,000 ML IV STA (16:46)
[2018-10-21] MEDS ORDERED: PAMIDRONATE DISODIUM 30 MG/VIAL IV STA (17:22)
[2018-10-21] MEDS ORDERED: LACTULOSE SYRUP 20 GM/30 ML UDC PO PRN (17:30)
[2018-10-21] MEDS ORDERED: FUROSEMIDE INJ 10 MG/ML 4 ML VIAL IV ONE (17:30)
--- NOTE | 2018-10-21 17:58 | Diagnostic Imaging Report ---
EXAMINATION: CHEST SINGLE (PORTABLE) INDICATION: ^weak ^[id number] ^[id number] COMPARISON: Chest radiograph dated 10/10/[address] dated 04/08/2018 FINDINGS: AP view TUBES and LINES: Right-sided chest port with tip in the mid SVC. LUNGS/PLEURA: New near total hazy opacification of the left lung, greatest in the left upper lobe, which somewhat obscures the borders of the lung mass left upper lobe. Right upper lobe lung mass is again seen. HEART AND MEDIASTINUM: Cardiac mediastinal silhouette is partially obscured due to partial opacification of the left lung, however not likely skeletally changed BONES AND SOFT TISSUES: No acute osseous lesion. Soft tissues are unremarkable. UPPER ABDOMEN: No free air under the diaphragm. IMPRESSION: New hazy opacity throughout the left lung, greatest in the upper lobe may represent developing consolidation, possibly postobstructive given the presence of the large left lung mass. Other consideration may be layering/loculated posterior pleural effusion. Consider dedicated chest CT for further characterization. Signed by: Sony Wall MD on 10/21/2018 5:54 PM
[2018-10-21] MEDS ORDERED: PAMIDRONATE DISODIUM 60 MG in SODIUM CHLORIDE 0.9% 500ML 500 ML IV ONE (18:00)
--- OUTSIDE RECORDS SUMMARY | 2018-10-21 18:08 | XMS REPORT | Clinical Summary ---
Author Author Al [facility] Organization [facility] Address Unknown Phone Unavailable Care Team Providers Care Spinning And Winding Supervisor Name Role Phone Asked, No Pcp PCP [...] [employer]IG[employer] OPEN xxxxxxxxxxx HMO ACCESS/NET WORK (Home) [place] [address] Advance Directives Patient has advance care planning documents on file. For more information, pleas e contact: Al Banks [address] [place] [address]
[2018-10-21 19:59] LABS: BILIRUBIN,URINE NEGATIVE (NEGATIVE); CLARITY,URINE CLEAR (CLEAR); COLOR,URINE YELLOW (YELLOW); KETONES,URINE NEGATIVE (NEGATIVE); LEUKOCYTE ESTERASE ,URINE NEGATIVE (NEGATIVE); NITRITE,URINE NEGATIVE (NEGATIVE); PROTEIN,URINE DIPSTICK NEGATIVE (NEGATIVE); URINE UROBILINOGEN 0.2 mg/dL (0.2 - 1)
[2018-10-21] MEDS ORDERED: CEFTRIAXONE SOD 1 GM VIAL IV SCH (20:00)
[2018-10-21 20:07] LABS: MUCUS,URINE FEW (RARE)
[2018-10-21 20:30] VITALS: BP 125/58
[2018-10-21] MEDS: METOPROLOL TARTRATE 25 MG TAB PO SCH (22:06)
[2018-10-21] MEDS: METHADONE HCL 10 MG TAB PO SCH (22:06)
[2018-10-21] MEDS: SODIUM CHLORIDE 0.9% 1000ML 1,000 ML IV SCH (22:48)
[2018-10-21 23:39] VITALS: BP 125/58
[2018-10-21 23:47] VITALS: BP 125/58
[2018-10-22] VITALS (9 sets, daily range): BP systolic 102–135; BP diastolic 56–70
[2018-10-22] MEDS: AZITHROMYCIN 500MG/NS 250 ML 250 ML IV SCH ×2 (00:01→20:44)
[2018-10-22] MEDS: CEFTRIAXONE SOD 1 GM/NS 50 ML 50 ML IV SCH ×3 (01:19→22:06)
--- NOTE | 2018-10-22 02:55 | History and Physical ---
CHIEF COMPLAINT: The patient is a 63-year-old gentleman with a history of lung cancer according to the and decreased responsiveness and also confusion. HISTORY OF PRESENT ILLNESS: Mr. Chetan Nazario with history of lung cancer, seen by Dr. Tony, was in his usual state of health until 3 days prior to admission. The patient started to have residual symptoms of unresponsiveness, which has gotten more severe. The patient was found to be having acute mental status changes and not responding to verbal stimuli at times and then responding to it at x2. The patient had a recent checkup with Dr. Tony and was supposed to have chemo tomorrow. The patient is currently alert, was seen in the ER and was diagnosed with volume depletion, hypovolemia, and dehydration. PAST MEDICAL HISTORY: The patient has history of hypertension, history of lung cancer, history of depression, history of chronic pain, and history of insomnia. PAST SURGICAL HISTORY: History of Port-A-Cath being placed and also back surgery. SOCIAL HISTORY: No EtOH. No IV drug abuse. Taken care of by his . FAMILY HISTORY: Positive for heart disease. MEDICATIONS: The patient takes are citalopram 20 mg daily, methadone 10 mg three times a day, metoprolol tartrate 25 mg q.12 hours, and zolpidem 10 mg at nighttime. REVIEW OF SYSTEMS: Negative for chest pain. No shortness of breath. No nausea, vomiting, or diarrhea. No black stools. No tarry stools. Positive for weight loss. No diplopia. No blurry vision. No epistaxis. No sinus pain. No sinus tenderness. No back pain. No dizziness. Positive for weakness and also the patient with difficulty walking. PHYSICAL EXAMINATION: VITAL SIGNS: Temperature is 96.1, pulse of 91, respirations of 16, blood pressure is 109/55, pulse oximetry of 94%. HEENT: Normocephalic, atraumatic. Pupils are reactive to light and accommodation. CVS: S1 and S2 normal. Regular rate and rhythm. LUNGS: Positive for rhonchi bilaterally. ABDOMEN: Scaphoid, nontender, nondistended. EXTREMITIES: Positive for edema bilaterally. LABORATORY VALUES: Initial white count was 8.95, hemoglobin of 9.5, hematocrit of 30.6, neutrophil count of 75. Chemistries show a sodium of 137, potassium 4.2, BUN 15, creatinine 0.81, calcium 11.3. MICROBIOLOGY: None. IMAGING STUDIES: Chest x-ray shows hazy opacities through the left lung base and upper lobe, possible postobstructive given the presence of large mass, consideration including a loculated posterior pleural effusion. ASSESSMENT: Dehydration, acute mental status changes, metabolic encephalopathy, and history of lung cancer with possible postobstructive pneumonic process. PLAN: 1. Plan is to continue the patient on O2 if needed and start the patient on some antibiotic, Rocephin and Zithromax for the postobstructive pneumonia like process. 2. Continue with IV fluid resuscitation and check laboratory values in the morning. 3. Further recommendation per clinical course. We will continue to monitor the patient and consult Dr. Tony. 4. For his hypertension, continue his antihypertensive and for depression, continue his depression medication. MD MARIO Gallo/MODL /[id number]
[2018-10-22 06:05] LABS: EOSINOPHILS # (AUTO) 0.3 (0.0-0.4); EOSINOPHILS % 3.5 % (0.0-6.0); HEMATOCRIT 24.9 % (38.2-49.6); HEMOGLOBIN 7.7 g/dL (14.0-18.0); LYMPHOCYTES # (AUTO) 1.1 (1.0-3.2); LYMPHOCYTES % 14.5 % (18.0-39.1); MEAN CORPUSCULAR HEMOGLOBIN 26.6 pg (28-32); MEAN CORPUSCULAR HGB CONC 30.9 g/dL (31-35); MEAN CORPUSCULAR VOLUME 85.9 fL (81-99); MONOCYTES # (AUTO) 0.9 (0.2-0.8); MONOCYTES % 11.7 % (4.4-11.3); NEUTROPHILS # (AUTO) 5.4 (2.1-6.9); NEUTROPHILS % 69.9 % (38.7-80.0); PLATELET COUNT 238 x10e3/uL (140-360); RED CELL DISTRIBUTION WIDTH 17.7 % (11.7-14.4)
[2018-10-22 06:14] LABS: ALANINE AMINOTRANSFERASE 29 IU/L (0-55); ALBUMIN 2.4 g/dL (3.5-5.0); ALBUMIN/GLOBULIN RATIO 0.7 (0.8-2.0); ALKALINE PHOSPHATASE 81 IU/L (40-150); ANION GAP 12.6 mmol/L (8-16); BLOOD UREA NITROGEN 14 mg/dL (7-26); BUN/CREATININE RATIO 19 (6-25); CALCIUM 9.8 mg/dL (8.4-10.2); CARBON DIOXIDE 26 mmol/L (22-29); CHLORIDE 101 mmol/L (98-107); CREATININE, SERUM 0.73 mg/dL (0.72-1.25); EST GLOMERULAR FILTRATION RATE > 60 ML/MIN (60-); GLUCOSE 100 mg/dL (74-118); POTASSIUM 3.6 mmol/L (3.5-5.1); SODIUM 136 mmol/L (136-145)
--- NOTE | 2018-10-22 07:00 | NUR ---
RECEIVED PATIENT RESTING IN BED. NO ACUTE DISTRESS NOTED. PATIENT IS AAOX1. NO FAMILY AT BEDSIDE. CALL LIGHT WITHIN REACH. BED IN THE LOWEST POSITION. BED ALARM ON.
[2018-10-22] MEDS: CITALOPRAM HYDROBROMIDE 20 MG TAB PO SCH (08:27)
[2018-10-22] MEDS: METHADONE HCL 10 MG TAB PO SCH ×3 (08:27→20:21)
[2018-10-22] MEDS: METOPROLOL TARTRATE 25 MG TAB PO SCH ×2 (08:27→20:22)
[2018-10-22] MEDS ORDERED: SODIUM CHLORIDE 0.9% 250ML 250 ML IV NR (08:30)
--- NOTE | 2018-10-22 10:52 | Progress Note ---
DATE: SUBJECTIVE: The patient is here for encephalopathy, confusion, and also possible pneumonia. Currently, afebrile, arousable and continues to be in a stuporous state. The patient has squamous lung cancer, seen by Dr. Tony currently. OBJECTIVE: VITAL SIGNS: Temperature is 96.8, pulse of 78, respirations of 20, blood pressure is 118/56, pulse oximetry of 95%. HEENT: Normocephalic. Pupils are reactive. CVS: S1, S2. Regular rate and rhythm. LUNGS: Positive for rhonchi on the right side. EXTREMITIES: No clubbing. No cyanosis. Positive for edema. LABORATORY DATA: Pending today. Yesterday's white count is 8.95. Chemistries; sodium 137, BUN of 15, creatinine 0.81. CK -MB negative. ASSESSMENT: 1. Acute mental status changes, encephalopathy, metabolic. 2. Dehydration. Continue with fluids. 3. Postobstructive pneumonia. We will keep him on Rocephin and Zithromax. At this time, Dr. Toyn was consulted. 4. Hypertension. Continue on antihypertensives and also antidepressants. Further recommendation per clinical course. We will continue to monitor the patient. DISPOSITION: Possible discharge in 1 to 2 days. The patient was supposed to get his chemotherapy today for his lung cancer. MD ARUNA GalloJ/MODL /[id number]
[2018-10-22] MEDS: SODIUM CHLORIDE 0.9% 1000ML 1,000 ML IV SCH ×2 (12:30→17:26)
[2018-10-22] MEDS ORDERED: SODIUM CHLORIDE 0.9% 250ML 250 ML ONE ×2 (13:49→23:28)
--- NOTE | 2018-10-22 13:53 | NUR ---
WOUND CARE CONSULTATION- INITIAL EVALUATION Patient admitted from Home to ER for AMS, Dehydration, Hyperglycemia HX: Lung Cancer. WBC7.72 IDD142 HCT24.9 NEUT%69.9 APB075 ALB2.4 Wound Care consulted for evaluation of Sacral Ulcer. PATIENT VISIT: Patient Calm, Slow to respond. Slow to follow command when prompted. Requires assistance to turn. 1 person assist. Roel Score 16 Alternating Pressure Air Mattress in place and set to patient current weight. Diapered. Sacral area presents with open ulcer with non blanchable redness. Serous fluid draining with denuded skin. Annular shaped ulcer measuring 1.2x1x0.2cm. Bilateral Heels intact. No Redness. No Erythema. BLE Edema +1. Pitting. IMPRESSION: Sacral - Stage II - Pressure Ulcer - Present On Admission. RECOMMENDATION: 1. Sacral - Stage II - PU - POA - Cleanse wound with NS and 4x4 gauze then pat dry thoroughly q12H - Apply Jose Cream Cover with Allevyn Foam Sacrum Dressing q12H and PRN Soiling. 2. Turn and Reposition Patient every 2 hours using turning clock schedule using repositioning wedges. 3. Maintain Head of Bed at less than or equal to 30 degrees as tolerated. 4. Bilateral Heel Protectors / Offload heels with pillows while in bed. 5. Encourage OOB Activity. 6. Continue Moderate PUP. Thank you for consulting with Wound Care. Addendum: 10/22/18 at 1400 by Gildardo Lazo RN Amended: Links added.
[2018-10-22] MEDS ORDERED: ZINC OXIDE / BALSAM PERU 30 GM TUBE TOP SCH (14:00)
--- NOTE | 2018-10-22 15:15 | NUR ---
Nutrition Intervention Note RD Recommendation(s) for Physician: - Continue current diet per MD - Recommend Ensure Compact TID for adequacy Plan of Care: RD following, monitoring for tolerance and adequacy Nutrition reason for involvement: Nutrition Risk Trigger- MST RD Assessment 10/22: 63 YOM admitted for AMS, dehydration, and hypercalcemia. Pt seen today per MST score. Pt discussed during am rounds, remains mentally altered. Pt sleeping at time of attempted visit, unable to wake with multiple attempts, and no family present to provide nutrition hx. No signs of malnutrition per physical assessment. Meal intake 25-50% today per FS. POC discussed with RN. Chart reviewed. Will monitor and continue to follow. Principal Problems/Diagnoses: AMS, dehydration, and hypercalcemia PMH: lung cancer, HTN, depression GI: WDL Skin: sacral stage I Labs: 10/22: Na 136, K 3.6, BUN 14, Cr 0.73, Gluc 100, Ca 9.8 Meds: abx, lactulose Ht: 71 in Wt: 172 lb BMI: 27.8 kg/m2 IBW: 199 lb Malnutrition Evaluation (10/22/18) The patient does not meet criteria for a specified degree of malnutrition at this time. Will re-evaluate at follow-up as appropriate. Nutrition Prescription (Diet Order): Cardiac Estimated Nutritional Needs: 4583-1201 calories/day (18-20 kcal/kg CBW) 90-136 g protein/day (1-1.5 g pro/kg CBW Diet Adequacy: Not meeting calorie needs, Not meeting protein needs Diet Education Needs Assessment: Diet education not indicated at this time. Nutrition Care Level: Moderate Nutrition Diagnosis: Inadequate energy and protein intake related to AMS as evidenced by not meeting intake. Goal: Patient will meet 75-100% of estimated needs by follow up Progress: N/A Interventions: Fat and mineral modified diet, Commercial beverage, Collaboration with other providers Monitoring/Evaluation: Total energy intake, Total protein intake, Modified diet, Liquid supplement Signed: Janine Zavala RD, LD, [facility]
--- NOTE | 2018-10-22 15:39 | NUR ---
UNABLE TO GET INFORMATION FOR DPA FROM PT DUE TO CONFUSION CALL PLACED TO PT'S ANNE-MARIE LARES AT [phone]; NO ANSWER, LEFT VM FOR HER TO CALL ME BACK.
--- NOTE | 2018-10-22 15:45 | NUR ---
Visit made by the Spiritual Care Department Pastoral Visitor, Terra Spence. Pt sleeping soundly and no family present. Pastoral Visitor left a card describing availability of water quality control engineer and instructions on how to contact a water quality control engineer. VIC BARKER Driller Helper Spiritual Care Department O: [phone] Pager: [phone] ([phone] number calling from)
--- NOTE | 2018-10-22 19:24 | NUR ---
REPORT GIVEN TO ONCOMING NURSE, WALKING ROUNDS DONE. PATIENT IS RESTING IN BED. AT BEDSIDE. CALL LIGHT WITHIN REACH. BED IN THE LOWEST POSITION.
--- NOTE | 2018-10-22 19:37 | NUR ---
PT IS RESTING IN BED WITH AT BEDSIDE. NO RESPIRATORY DISTRESS NOTED. BED IN THE LOWEST POSITION, LOCKED, BED ALARM ON, AND CALL LIGHT WITHIN REACH. WILL CONTINUE TO MONITOR.
[2018-10-22] MEDS: LEVALBUTEROL HCL SOLN NEBU 1.25 MG/3 ML NEB INH SCH ×2 (19:38→23:10)
[2018-10-22] MEDS: ACETAMINOPHEN 325 MG TAB PO PRN (20:20)
[2018-10-22] MEDS: ZINC OXIDE / BALSAM PERU 30 GM TUBE TOP SCH (20:55)
--- NOTE | 2018-10-22 23:56 | NUR ---
SECOND UNIT OF BLOOD STARTED. NO REACTION NOTED. WILL CONTINUE TO MONITOR.
[2018-10-23] VITALS (7 sets, daily range): BP systolic 114–152; BP diastolic 56–91
[2018-10-23] MEDS: LEVALBUTEROL HCL SOLN NEBU 1.25 MG/3 ML NEB INH SCH ×6 (00:21→19:56)
[2018-10-23] MEDS: SODIUM CHLORIDE 0.9% 1000ML 1,000 ML IV SCH ×2 (01:26→08:17)
--- NOTE | 2018-10-23 03:55 | NUR ---
SECOND UNIT OF BLOOD ADMINISTRATION COMPLETE. NO REACTION NOTED. WILL CONTINUE TO MONITOR.
[2018-10-23 06:56] LABS: BASOPHILS % 0.1 % (0.0-1.0); EOSINOPHILS # (AUTO) 0.3 (0.0-0.4); HEMATOCRIT 33.6 % (38.2-49.6); HEMOGLOBIN 10.5 g/dL (14.0-18.0); LYMPHOCYTES # (AUTO) 1.5 (1.0-3.2); MEAN CORPUSCULAR HEMOGLOBIN 26.6 pg (28-32); MEAN CORPUSCULAR HGB CONC 31.3 g/dL (31-35); MEAN CORPUSCULAR VOLUME 85.1 fL (81-99); MONOCYTES % 14.2 % (4.4-11.3); NEUTROPHILS % 59.3 % (38.7-80.0); PLATELET COUNT 217 x10e3/uL (140-360); RED BLOOD COUNT 3.95 x10e6/uL (4.3-5.7); RED CELL DISTRIBUTION WIDTH 17.6 % (11.7-14.4)
--- NOTE | 2018-10-23 07:00 | NUR ---
RECEIVED PT RESTING IN BED EYES CLOSED RESPIRATIONS EVEN AND NON LABORED ON ROOM AIR. NO S/S OF DISTRESS NOTED. CALL LIGHT WITHIN REACH. BED ALARM ON. WILL CONTINUE TO MONITOR.
[2018-10-23] MEDS: ZINC OXIDE / BALSAM PERU 30 GM TUBE TOP SCH ×2 (08:17→20:32)
[2018-10-23] MEDS: METHADONE HCL 10 MG TAB PO SCH ×3 (08:17→20:32)
[2018-10-23] MEDS: METOPROLOL TARTRATE 25 MG TAB PO SCH ×2 (08:17→20:31)
[2018-10-23] MEDS: CITALOPRAM HYDROBROMIDE 20 MG TAB PO SCH (08:17)
[2018-10-23] MEDS: CEFTRIAXONE SOD 1 GM/NS 50 ML 50 ML IV SCH ×2 (08:17→21:35)
--- NOTE | 2018-10-23 10:37 | Progress Note ---
DATE: SUBJECTIVE: The patient is 63-year-old with lung cancer. The patient is currently asymptomatic, sleeps a lot. The patient did receive 2 units of PRBCs. OBJECTIVE: VITAL SIGNS: Temperature is 96.2, pulse is 73, respirations 16, and pulse oximetry of 94%. HEENT: Normocephalic, atraumatic. Pupils are reactive to light and accommodation. CVS: S1, S2 normal. Regular rate and rhythm. ABDOMEN: Nontender, nondistended, scaphoid. LUNGS: Positive for rhonchi, right upper lobe. EXTREMITIES: No clubbing. No cyanosis. Positive for edema. LABORATORY VALUES: Pending. Chemistries are not done today, but CBC is pending. ASSESSMENT: 1. Acute mental status changes, encephalopathy. 2. Dehydration. Continue with fluids. 3. Anemia. Two units of PRBCs have been transfused. 4. Post-obstructive pneumonia. We will continue Rocephin and Zithromax. 5. Hypertension, antihypertensives. 6. Depression, antidepressant medications have been continued. PLAN: Plan is to monitor the patient. He can be discharged if okay with Dr. Tinoco. Further recommendation as an outpatient basis. MD MARIO Gallo/MODL /[id number]
[2018-10-23] MEDS: ACETAMINOPHEN 325 MG TAB PO PRN (15:06)
--- NOTE | 2018-10-23 19:05 | NUR ---
Completed bedside rounds with morning nurse. Pt alert and orient to name. Lying in bed HOB 45 degrees. Call johnson within reach. Will continue to monitor.
[2018-10-23] MEDS: AZITHROMYCIN 500MG/NS 250 ML 250 ML IV SCH (20:31)
[2018-10-23] MEDS ORDERED: ZOLPIDEM TARTRATE 10 MG TAB PO PRN (21:15)
[2018-10-24] VITALS (8 sets, daily range): BP systolic 100–155; BP diastolic 59–70
[2018-10-24] MEDS: LEVALBUTEROL HCL SOLN NEBU 1.25 MG/3 ML NEB INH SCH ×6 (00:34→20:12)
--- NOTE | 2018-10-24 06:45 | NUR ---
Rounds with Dr. Cancino. Pt jeovanny. Possible d/c after Dr. Tony visit. Home health with Pt kenna ordered.
--- NOTE | 2018-10-24 07:05 | NUR ---
pt alert resp even and unlabored at this time no distress noted pt able to make needs known no c/o pain when asked, call light in reach.
--- NOTE | 2018-10-24 08:18 | Progress Note ---
DATE: SUBJECTIVE: The patient is a 63-year-old man with metastatic lung cancer. The patient is currently still confused, but this is baseline, the patient wants to go home. OBJECTIVE: VITAL SIGNS: Temperature is 96.4, pulse of 84, respirations of 17, blood pressure is 142/64, pulse oximetry of 97% on room air. HEENT: Normocephalic, atraumatic. Pupils are reactive to light and accommodation. CVS: S1, S2. Regular rate and rhythm. LUNGS: Decreased air entry in bilateral lung roman. Positive for rhonchi. EXTREMITIES: No clubbing, no cyanosis, no edema. LABORATORY VALUES: Hemoglobin of 10.5, hematocrit of 33.6, no left shift present. Chemistry; sodium 136, potassium is 3.6, BUN and creatinine 14 and 0.73. ASSESSMENT: 1. Acute mental status changes with encephalopathy. 2. Dehydration. 3. Anemia. Continue with monitoring the patient's H and H, status post 2 units of PRBC transfusion. 4. Post-obstructive pneumonia. Continue Rocephin and Zithromax. 5. Depression, antidepressant. 6. Hypertension. Continue with antihypertensive. PLAN: Plan is to discharge the patient if okay with Dr. Tony. MD MARIO Gallo/HANNAL /[id number]
[2018-10-24] MEDS: CITALOPRAM HYDROBROMIDE 20 MG TAB PO SCH (08:43)
[2018-10-24] MEDS: CEFTRIAXONE SOD 1 GM/NS 50 ML 50 ML IV SCH ×2 (09:43→21:00)
[2018-10-24] MEDS: METOPROLOL TARTRATE 25 MG TAB PO SCH ×2 (09:44→20:46)
[2018-10-24] MEDS: ZINC OXIDE / BALSAM PERU 30 GM TUBE TOP SCH ×2 (09:45→20:46)
[2018-10-24] MEDS: METHADONE HCL 10 MG TAB PO SCH ×3 (09:45→20:46)
--- NOTE | 2018-10-24 14:51 | NUR ---
call to Dr. Odom, for orders given
[2018-10-24] MEDS: LORAZEPAM 0.5 MG TAB PO PRN (17:16)
--- NOTE | 2018-10-24 19:22 | NUR ---
report given to oncoming nurse, for continued care
[2018-10-24] MEDS: AZITHROMYCIN 500MG/NS 250 ML 250 ML IV SCH (20:45)
[2018-10-25] MEDS: LORAZEPAM 0.5 MG TAB PO PRN (00:10)
[2018-10-25 00:37] VITALS: BP 154/67
[2018-10-25] MEDS: LEVALBUTEROL HCL SOLN NEBU 1.25 MG/3 ML NEB INH SCH ×3 (03:00→10:45)
[2018-10-25 04:00] VITALS: BP 138/64
--- NOTE | 2018-10-25 07:00 | NUR ---
Pt alert and orient. Lying in bed HOB 60 degrees. Denies pain. No distress noted.
--- NOTE | 2018-10-25 07:02 | NUR ---
RECEIVED PATIENT RESTING IN BED. NO ACUTE DISTRESS NOTED. NO S/S OF PAIN OR DISCOMFORT. CALL LIGHT WITHIN REACH. BED IN THE LOWEST POSITION.
[2018-10-25 07:36] VITALS: BP 134/62
[2018-10-25 07:53] VITALS: BP 134/62
[2018-10-25] MEDS: ZINC OXIDE / BALSAM PERU 30 GM TUBE TOP SCH (08:43)
[2018-10-25] MEDS: METOPROLOL TARTRATE 25 MG TAB PO SCH (08:43)
[2018-10-25] MEDS: METHADONE HCL 10 MG TAB PO SCH (08:43)
[2018-10-25] MEDS: CEFTRIAXONE SOD 1 GM/NS 50 ML 50 ML IV SCH (08:43)
[2018-10-25] MEDS: CITALOPRAM HYDROBROMIDE 20 MG TAB PO SCH (08:43)
[2018-10-25 11:13] VITALS: BP 123/59
--- NOTE | 2018-10-25 11:22 | NUR ---
CM TO BEDSIDE TO DISCUSS IMM MEDICARE PATIENT'S RIGHTS. QUESTIONS ANSWERED AND SIGNATURE OBTAINED. PATIENT VERBALIZED UNDERSTANDING OF DISCUSSION. COPY OF LETTER TO PATIENT'S CHART AND IN TRANSITION OF CARE FOLDER AT PATIENT'S BEDSIDE.
--- NOTE | 2018-10-25 11:38 | Consultation ---
DATE OF CONSULTATION: 10/22/2018 HISTORY OF PRESENT ILLNESS: Chetan Nazario is a 63-year-old white male referred to me for evaluation of lung cancer. The patient had confusion. Subsequently, the patient became unresponsive, subsequently was admitted for further evaluation and treatment. PAST MEDICAL HISTORY: History of hypertension, history of lung cancer in both the lungs more than 5 cm each, history of major depression, history of chronic pain syndrome, and history of insomnia. SOCIAL HISTORY: History of smoking. FAMILY HISTORY: Noncontributory. ALLERGIES: NONE. MEDICATIONS: At this time: 1. Citalopram. 2. Methadone. 3. Metoprolol. 4. Ambien. REVIEW OF SYSTEMS: HEENT: Normal. CARDIAC: Normal except for tachycardia. RESPIRATORY: Bilateral lung cancer inoperable. GI: Normal. : Normal. MUSCULOSKELETAL: Normal. SKIN AND BREASTS: Normal. NEUROENDOCRINE: Essentially normal. PHYSICAL EXAMINATION: GENERAL: A moderately-built male, no palpable adenopathy. HEART: Within normal limits. LUNGS: Clear. ABDOMEN: Obese. RECTAL: Deferred. CENTRAL NERVOUS SYSTEM: Essentially normal. LABS: Investigations of interest show the patient to have hemoglobin of 7.7, hematocrit of 24.9, white count 11,700, and platelets of 238,000. Sodium 136, potassium 3.6, chloride 101, CO2 26, bilirubin 0.2, SGOT 29, SGPT 34, alkaline phosphatase 81. Initially, calcium was reported at 11.2. The patient was given saline and Aredia 60 mg; however, the calcium was reported essentially normal. IMPRESSION: 1. Bilateral lung cancer, non-small cell. 2. Hypercalcemia. 3. Metabolic encephalopathy. 4. History of chronic pain syndrome, etiology of which is not clear. 5. History of insomnia. 6. History of major depression. 7. Anemia of chronic disease. PLAN: Plan is to treat him with IV fluids. The patient will be given blood transfusions. Stool for occult blood will be done. I will continue to follow this patient very closely. Thank you very much for allowing me to participate in management of this patient. I will confine myself only to the Heme-Onc. MD KACIE Lancaster/MODL /[id number]
--- NOTE | 2018-10-25 12:52 | NUR ---
ORDERS FOR HOME HEALTH SKILLED NURSE , PT/OT EVAL AND TREAT AND ROLLING WALKER HOME 02 EVAL DONE YESTERDAY; PT DOES NOT QUALIFY FOR RW, SATS ALL ABOVE 90 PROVIDED PT WITH RW FROM [facility] AND [facility] MEDICAL FORM COMPLETED CHOICE LETTER SIGNED BY PT FOR [facility] [phone] ORDERS FAXED TO [facility] AT [phone] CONFIRMATION REC'D
--- NOTE | 2018-10-25 12:54 | NUR ---
[facility] PHONE [phone] [address] [facility] [employer] DEVELOPER DAISY LOCKWOOD R.N. [phone]
--- NOTE | 2018-10-25 13:43 | NUR ---
RECEIVED DC ORDER FROM MD. PATIENT IS IN STABLE CONDITION. IV LINE TO RIGHT FOREARM DCD WITH TIP INTACT, PRESSURE APPLIED TO SITE, NO BLEEDING NOTED. DISCHARGE TEACHING PROVIDED TO PATIENT AND , VERBALIZED UNDERSTANDING. DISCHARGE FOLDER AND PERSONAL ITEMS ON HAND. HOME HEALTH HAS BEEN SET UP FOR PATIENT AND WALKER PROVIDED. PATIENT ACCOMPANIED TO PRIVATE AUTO VIA WHEELCHAIR BY STAFF.
== END 2018-10-25 13:52 | disposition home health service (06) | DRG 193 ==
LOC: ER 15:05 → ERHOLD 18:05 → MED/SURG3 19:30
PROVIDERS: ADMIT Internal Medicine; ATTEND Internal Medicine
PROC: 30233N1 Transfusion of Nonautologous Red Blood Cells into Peripheral Vein, Percutaneous Approach (ICD-10-PCS; principal; 2018-10-22)
DX: J18.9 Pneumonia, unspecified organism (principal); G93.41 Metabolic encephalopathy; C34.92 Malignant neoplasm of unspecified part of left bronchus or lung; C34.91 Malignant neoplasm of unspecified part of right bronchus or lung; E86.0 Dehydration; I10 Essential (primary) hypertension; F32.9 Major depressive disorder, single episode, unspecified; G89.4 Chronic pain syndrome; G47.00 Insomnia, unspecified; E83.52 Hypercalcemia; D63.8 Anemia in other chronic diseases classified elsewhere; L89.152 Pressure ulcer of sacral region, stage 2
CPT/HCPCS: 36415; 71045; 80053; 81001; 82550; 82553; 84484; 85025; 86850; 86900; 86920; 93005; 94640; 97139; 99284; J0456; J0696; J1940; J2430; J7030; J7040; J7050; P9016